=== PATIENT | female | born 1945 | race Caucasian/White ===

== ENCOUNTER 2021-01-21 17:49 | Emergency (ER) | payer MEDICARE ==
[~2021-01-21 17:49] MED LIST: Sodium Chloride 0.9% 100 ML BAG ONE
[2021-01-21] MEDS ORDERED: Ondansetron PF 4 MG/2 ML Vial ONE (18:37)
[2021-01-21] MEDS ORDERED: Sodium Chloride 0.9% 1,000 ML ONE (18:37)
[2021-01-21 18:49] LABS: #Basophils 0.1 thou/uL (0.0-0.2); #Eosinphils 0.1 thou/uL (0.0-0.7); #Monocytes 0.3 thou/uL (0.11-0.59); #Neutrophils 6.4 thou/uL (1.40-6.50); %Basophils 0.8 % (0.0-1.0); %Eosinophils 0.8 % (0.0-10.0); %Lymphocytes 12.2 % (21.0-51.0); %Monocytes 3.7 % (0.0-10.0); %Neutrophils 82.5 % (42.0-75.0); Hemoglobin 12.4 g/dL (12.0-16.0); MDiff Complete? YES; Macrocytosis SLIGHT = 6-15 cells (100X) (0-5/hpf); Mean Corpuscular HGB CONC 33.4 g/dL (32.0-36.0); Mean Corpuscular Hemoglobin 36.7 pg (27.0-31.0); Mean Platelet Volume 8.2 fL (7.4-10.4); Platelet Count 272 thou/uL (130-400); RBC Distribution Width 11.8 % (11.5-14.5); Red Blood Cell (RBC) Count 3.37 mill/uL (4.20-5.40); White Blood Cell (WBC) Count 7.8 thou/uL (4.8-10.8)
[2021-01-21 18:53] LABS: ALT (SGPT) 12 U/L (8-55); AST (SGOT) 21 U/L (5-34); Albumin 3.7 g/dL (3.4-4.8); Alkaline Phosphatase 88 U/L (40-110); Anion Gap 24 mmol/L (10-20); BUN (Urea Nitrogen) 106 mg/dL (9.8-20.1); Bilirubin, Total 0.4 mg/dL (0.2-1.2); CK (CPK) 203 U/L (29-168); Calc. Creatinine Clearance 0 mL/min (70-130); Calcium 7.6 mg/dL (7.8-10.44); Carbon Dioxide 13 mmol/L (23-31); Chloride 86 mmol/L (98-107); Globulin 2.6 g/dL (2.4-3.5); Glucose 104 mg/dL (83-110); Potassium 4.2 mmol/L (3.5-5.1); Protein, Total 6.3 g/dL (5.8-8.1)
[2021-01-21 19:04] LABS: Sodium 119 mmol/L (136-145)
[2021-01-21 19:44] LABS: Bilirubin Negative (Negative); Blood, Urine Negative (Negative); Clarity Slightly Cloudy (Clear); Glucose, Urine (Dipstick) Negative (Negative); Ketone, Urine Negative (Negative); Leukocyte Small (Negative); Nitrite Negative (Negative); Protein, Urine (Dipstick) Negative (Neg-Trace); Urobilinogen 0.2 mg/dL (Less than 2)
[2021-01-21 19:49] LABS: Bacteria/HPF 3+ HPF (None Seen); RBC/HPF 0-3 HPF (0-3); Squamous Epithelial 0-3 HPF (0-3)
[2021-01-21] MEDS ORDERED: cefTRIAXone\\ROCEPHIN 2 GM VIAL ONE (20:13)
== END 2021-01-21 20:25 | disposition short-term general hospital (02) ==
LOC: MADERS 17:49
DX: R41.82 Altered mental status, unspecified (principal); E87.1 Hypo-osmolality and hyponatremia; N17.9 Acute kidney failure, unspecified; E86.0 Dehydration; N39.0 Urinary tract infection, site not specified; E03.9 Hypothyroidism, unspecified; E78.5 Hyperlipidemia, unspecified; I10 Essential (primary) hypertension; I25.2 Old myocardial infarction; R60.0 Localized edema; R26.9 Unspecified abnormalities of gait and mobility; Z87.19 Personal history of other diseases of the digestive system
CPT/HCPCS: 36415; 70450; 71045; 80053; 81003; 81015; 82550; 84484; 85025; 86140; 87040; 87077; 87086; 87186; 96374; 96375; J0696; J2405; J3490; J7050

== ENCOUNTER 2021-02-02 16:15 | Inpatient (IN) | payer MEDICARE ==
[2021-02-02] MEDS ORDERED: Nystatin Powder 15 GM BOT TOP PRN (18:16)
[2021-02-02] MEDS ORDERED: Nitroglycerin 0.4 MG TAB (25 Tab Bottle) SL PRN (18:16)
[2021-02-02] MEDS: Atorvastatin Calcium 40 MG TAB PO SCH (21:16)
[2021-02-02] MEDS: Senokot S 8.6-50 MG TAB PO SCH (21:17)
[2021-02-02] MEDS: guaiFENesin ER 600 MG TAB PO SCH (21:17)
[2021-02-02] MEDS: Clopidogrel Bisulfate 75 MG TAB PO SCH (21:17)
[2021-02-02] MEDS: Loratadine 10 MG TAB PO SCH (21:17)
[2021-02-03] MEDS: Lorazepam 1 MG TAB PO PRN (01:06)
[2021-02-03] MEDS: Levothyroxine Sodium 25 MCG TAB PO SCH (05:37)
[2021-02-03 06:09] LABS: Band 2 % (5-11); Eosinophils 1 % (0-10); Giant Platelets SLIGHT; Hemoglobin 11.1 g/dL (12.0-16.0); Large Platelets SLIGHT; Lymphocytes 9 % (21-51); MDiff Complete? YES; Macrocytosis SLIGHT = 6-15 cells (100X) (0-5/hpf); Mean Corpuscular HGB CONC 31.6 g/dL (32.0-36.0); Mean Corpuscular Hemoglobin 36.8 pg (27.0-31.0); Mean Corpuscular Volume 116.3 fL (78.0-98.0); Mean Platelet Volume 8.5 fL (7.4-10.4); Monocytes 3 % (0-10); Neutrophil 85 % (42-75); Platelet Count 260 thou/uL (130-400); Platelet Morphology Comment Appears Adequate; RBC Distribution Width 13.4 % (11.5-14.5); Red Blood Cell (RBC) Count 3.03 mill/uL (4.20-5.40); White Blood Cell (WBC) Count 11.7 thou/uL (4.8-10.8)
[2021-02-03 07:33] LABS: ALT (SGPT) 20 U/L (8-55); AST (SGOT) 23 U/L (5-34); Albumin 3.2 g/dL (3.4-4.8); Alkaline Phosphatase 107 U/L (40-110); Anion Gap 17 mmol/L (10-20); BUN (Urea Nitrogen) 25 mg/dL (9.8-20.1); Bilirubin, Total 1.1 mg/dL (0.2-1.2); Calc. Creatinine Clearance 87 mL/min (70-130); Calcium 8.6 mg/dL (7.8-10.44); Carbon Dioxide 27 mmol/L (23-31); Chloride 101 mmol/L (98-107); Glucose 88 mg/dL (83-110); Potassium 3.6 mmol/L (3.5-5.1); Protein, Total 5.2 g/dL (5.8-8.1); Sodium 141 mmol/L (136-145)
[2021-02-03] MEDS ORDERED: Ondansetron ODT 4 MG TAB SL PRN (07:56)
[2021-02-03] MEDS: Carvedilol 3.125 MG TAB PO SCH ×2 (09:11→17:41)
[2021-02-03] MEDS: Aspirin Chewable 81 MG TAB PO SCH (09:11)
[2021-02-03] MEDS: Furosemide 40 MG TAB PO SCH (09:12)
[2021-02-03] MEDS: Cyanocobalamin (Vitamin B-12) 1,000 MCG TAB PO SCH (09:12)
[2021-02-03] MEDS: Stress 600 With Zinc 1 TAB PO SCH (09:23)
[2021-02-03] MEDS: Senokot S 8.6-50 MG TAB PO SCH ×3 (09:23→20:22)
[2021-02-03] MEDS: Multivitamin W/ Minerals 1 TAB PO SCH (09:29)
[2021-02-03] MEDS: guaiFENesin ER 600 MG TAB PO SCH ×2 (09:29→20:22)
[2021-02-03] MEDS: Potassium Bicarbonate/Cit Ac 20 MEQ TAB PO SCH ×3 (09:30→12:03)
[2021-02-03] MEDS: Atorvastatin Calcium 40 MG TAB PO SCH (20:22)
[2021-02-03] MEDS: Loratadine 10 MG TAB PO SCH (20:22)
[2021-02-03] MEDS: Clopidogrel Bisulfate 75 MG TAB PO SCH (20:22)
[2021-02-04] MEDS: Levothyroxine Sodium 25 MCG TAB PO SCH (05:01)
[2021-02-04] MEDS: Furosemide 40 MG TAB PO SCH (08:33)
[2021-02-04] MEDS: Senokot S 8.6-50 MG TAB PO SCH ×2 (08:33→20:59)
[2021-02-04] MEDS: Carvedilol 3.125 MG TAB PO SCH ×2 (08:33→17:23)
[2021-02-04] MEDS: Cyanocobalamin (Vitamin B-12) 1,000 MCG TAB PO SCH (08:33)
[2021-02-04] MEDS: Aspirin Chewable 81 MG TAB PO SCH (08:33)
[2021-02-04] MEDS: Stress 600 With Zinc 1 TAB PO SCH (08:46)
[2021-02-04] MEDS: Multivitamin W/ Minerals 1 TAB PO SCH (08:46)
[2021-02-04] MEDS: guaiFENesin ER 600 MG TAB PO SCH ×2 (08:46→20:58)
[2021-02-04] MEDS: Potassium Bicarbonate/Cit Ac 20 MEQ TAB PO SCH (11:50)
[2021-02-04] MEDS ORDERED: Bisacodyl 10 MG SUPP PR PRN (13:47)
[2021-02-04] MEDS: Atorvastatin Calcium 40 MG TAB PO SCH (20:58)
[2021-02-04] MEDS: Loratadine 10 MG TAB PO SCH (20:58)
[2021-02-04] MEDS: Clopidogrel Bisulfate 75 MG TAB PO SCH (20:58)
[2021-02-04] MEDS ORDERED: Polyethylene Glycol 3350 17 GM Packet PO SCH (21:00)
[2021-02-05] MEDS: Levothyroxine Sodium 25 MCG TAB PO SCH (05:22)
[2021-02-05] MEDS: Polyethylene Glycol 3350 17 GM Packet PO SCH (08:03)
[2021-02-05] MEDS: Multivitamin W/ Minerals 1 TAB PO SCH (09:12)
[2021-02-05] MEDS: Carvedilol 3.125 MG TAB PO SCH ×2 (09:12→17:42)
[2021-02-05] MEDS: Furosemide 40 MG TAB PO SCH (09:12)
[2021-02-05] MEDS: Senokot S 8.6-50 MG TAB PO SCH ×2 (09:12→21:33)
[2021-02-05] MEDS: guaiFENesin ER 600 MG TAB PO SCH ×2 (09:12→21:32)
[2021-02-05] MEDS: Aspirin Chewable 81 MG TAB PO SCH (09:12)
[2021-02-05] MEDS: Cyanocobalamin (Vitamin B-12) 1,000 MCG TAB PO SCH (09:12)
[2021-02-05] MEDS: Stress 600 With Zinc 1 TAB PO SCH (09:13)
[2021-02-05] MEDS: Potassium Bicarbonate/Cit Ac 20 MEQ TAB PO SCH (11:25)
[2021-02-05] MEDS: Atorvastatin Calcium 40 MG TAB PO SCH (21:31)
[2021-02-05] MEDS: Clopidogrel Bisulfate 75 MG TAB PO SCH (21:32)
[2021-02-05] MEDS: Loratadine 10 MG TAB PO SCH (21:33)
[2021-02-06] MEDS: Levothyroxine Sodium 25 MCG TAB PO SCH (05:54)
[2021-02-06] MEDS: Aspirin Chewable 81 MG TAB PO SCH (08:02)
[2021-02-06] MEDS: guaiFENesin ER 600 MG TAB PO SCH ×2 (08:02→21:30)
[2021-02-06] MEDS: Stress 600 With Zinc 1 TAB PO SCH (08:02)
[2021-02-06] MEDS: Carvedilol 3.125 MG TAB PO SCH ×2 (08:03→17:11)
[2021-02-06] MEDS: Furosemide 40 MG TAB PO SCH (08:03)
[2021-02-06] MEDS: Multivitamin W/ Minerals 1 TAB PO SCH (08:03)
[2021-02-06] MEDS: Cyanocobalamin (Vitamin B-12) 1,000 MCG TAB PO SCH (08:03)
[2021-02-06] MEDS: Polyethylene Glycol 3350 17 GM Packet PO SCH (08:53)
[2021-02-06] MEDS: Senokot S 8.6-50 MG TAB PO SCH ×2 (08:53→21:30)
[2021-02-06] MEDS: Potassium Bicarbonate/Cit Ac 20 MEQ TAB PO SCH (11:43)
[2021-02-06] MEDS: Lorazepam 1 MG TAB PO PRN (21:30)
[2021-02-06] MEDS: Loratadine 10 MG TAB PO SCH (21:30)
[2021-02-06] MEDS: Atorvastatin Calcium 40 MG TAB PO SCH (21:30)
[2021-02-06] MEDS: Clopidogrel Bisulfate 75 MG TAB PO SCH (21:30)
[2021-02-07] MEDS: Levothyroxine Sodium 25 MCG TAB PO SCH (05:09)
[2021-02-07] MEDS: Aspirin Chewable 81 MG TAB PO SCH (08:09)
[2021-02-07] MEDS: guaiFENesin ER 600 MG TAB PO SCH ×2 (08:09→20:45)
[2021-02-07] MEDS: Furosemide 40 MG TAB PO SCH (08:09)
[2021-02-07] MEDS: Multivitamin W/ Minerals 1 TAB PO SCH (08:09)
[2021-02-07] MEDS: Stress 600 With Zinc 1 TAB PO SCH (08:09)
[2021-02-07] MEDS: Cyanocobalamin (Vitamin B-12) 1,000 MCG TAB PO SCH (08:09)
[2021-02-07] MEDS: Carvedilol 3.125 MG TAB PO SCH ×2 (08:33→15:45)
[2021-02-07] MEDS: Senokot S 8.6-50 MG TAB PO SCH ×2 (08:34→20:46)
[2021-02-07] MEDS: Polyethylene Glycol 3350 17 GM Packet PO SCH (08:34)
[2021-02-07] MEDS: Potassium Bicarbonate/Cit Ac 20 MEQ TAB PO SCH (11:58)
[2021-02-07] MEDS: Clopidogrel Bisulfate 75 MG TAB PO SCH (20:44)
[2021-02-07] MEDS: Atorvastatin Calcium 40 MG TAB PO SCH (20:44)
[2021-02-07] MEDS: Lorazepam 1 MG TAB PO PRN (20:46)
[2021-02-07] MEDS: Loratadine 10 MG TAB PO SCH (20:46)
[2021-02-08] MEDS: Levothyroxine Sodium 25 MCG TAB PO SCH (05:29)
[2021-02-08] MEDS: Aspirin Chewable 81 MG TAB PO SCH (09:12)
[2021-02-08] MEDS: Furosemide 40 MG TAB PO SCH (09:12)
[2021-02-08] MEDS: Carvedilol 3.125 MG TAB PO SCH ×2 (09:12→17:44)
[2021-02-08] MEDS: Cyanocobalamin (Vitamin B-12) 1,000 MCG TAB PO SCH (09:13)
[2021-02-08] MEDS: Senokot S 8.6-50 MG TAB PO SCH ×2 (09:13→20:57)
[2021-02-08] MEDS: Polyethylene Glycol 3350 17 GM Packet PO SCH (09:13)
[2021-02-08] MEDS: guaiFENesin ER 600 MG TAB PO SCH ×2 (09:13→20:57)
[2021-02-08] MEDS: Multivitamin W/ Minerals 1 TAB PO SCH (09:13)
[2021-02-08] MEDS: Stress 600 With Zinc 1 TAB PO SCH (09:13)
[2021-02-08] MEDS: Potassium Bicarbonate/Cit Ac 20 MEQ TAB PO SCH (11:54)
[2021-02-08] MEDS: Clopidogrel Bisulfate 75 MG TAB PO SCH (20:56)
[2021-02-08] MEDS: Atorvastatin Calcium 40 MG TAB PO SCH (20:56)
[2021-02-08] MEDS: Loratadine 10 MG TAB PO SCH (20:57)
[2021-02-08] MEDS: Lorazepam 1 MG TAB PO PRN (20:58)
[2021-02-09] MEDS: Levothyroxine Sodium 25 MCG TAB PO SCH (05:34)
[2021-02-09] MEDS: Furosemide 40 MG TAB PO SCH (08:15)
[2021-02-09] MEDS: Carvedilol 3.125 MG TAB PO SCH ×2 (08:15→16:37)
[2021-02-09] MEDS: Aspirin Chewable 81 MG TAB PO SCH (08:17)
[2021-02-09] MEDS: Multivitamin W/ Minerals 1 TAB PO SCH (08:17)
[2021-02-09] MEDS: guaiFENesin ER 600 MG TAB PO SCH ×2 (08:18→21:06)
[2021-02-09] MEDS: Cyanocobalamin (Vitamin B-12) 1,000 MCG TAB PO SCH (08:18)
[2021-02-09] MEDS: Senokot S 8.6-50 MG TAB PO SCH ×2 (08:18→21:06)
[2021-02-09] MEDS: Stress 600 With Zinc 1 TAB PO SCH (08:18)
[2021-02-09] MEDS: Polyethylene Glycol 3350 17 GM Packet PO SCH (08:18)
[2021-02-09] MEDS: Potassium Bicarbonate/Cit Ac 20 MEQ TAB PO SCH (12:04)
[2021-02-09] MEDS: Atorvastatin Calcium 40 MG TAB PO SCH (21:05)
[2021-02-09] MEDS: Clopidogrel Bisulfate 75 MG TAB PO SCH (21:06)
[2021-02-09] MEDS: Loratadine 10 MG TAB PO SCH (21:06)
[2021-02-09] MEDS: Lorazepam 1 MG TAB PO PRN (21:07)
[2021-02-10] MEDS: Levothyroxine Sodium 25 MCG TAB PO SCH (05:39)
[2021-02-10] MEDS: Cyanocobalamin (Vitamin B-12) 1,000 MCG TAB PO SCH (08:29)
[2021-02-10] MEDS: Carvedilol 3.125 MG TAB PO SCH ×2 (08:29→17:04)
[2021-02-10] MEDS: Senokot S 8.6-50 MG TAB PO SCH ×2 (08:29→20:20)
[2021-02-10] MEDS: Multivitamin W/ Minerals 1 TAB PO SCH (08:30)
[2021-02-10] MEDS: Stress 600 With Zinc 1 TAB PO SCH (08:30)
[2021-02-10] MEDS: Furosemide 40 MG TAB PO SCH (08:30)
[2021-02-10] MEDS: Aspirin Chewable 81 MG TAB PO SCH (08:30)
[2021-02-10] MEDS: Polyethylene Glycol 3350 17 GM Packet PO SCH (08:30)
[2021-02-10] MEDS: guaiFENesin ER 600 MG TAB PO SCH ×3 (08:30→20:20)
[2021-02-10 09:29] VITALS: BMI 38.5
[2021-02-10] MEDS: Potassium Bicarbonate/Cit Ac 20 MEQ TAB PO SCH (11:53)
[2021-02-10] MEDS: Clopidogrel Bisulfate 75 MG TAB PO SCH (20:20)
[2021-02-10] MEDS: Atorvastatin Calcium 40 MG TAB PO SCH (20:20)
[2021-02-10] MEDS: Loratadine 10 MG TAB PO SCH (20:21)
[2021-02-11] MEDS: Lorazepam 1 MG TAB PO PRN ×2 (00:36→19:58)
[2021-02-11] MEDS: Levothyroxine Sodium 25 MCG TAB PO SCH (05:18)
[2021-02-11 05:45] LABS: ALT (SGPT) 25 U/L (8-55); AST (SGOT) 24 U/L (5-34); Albumin 2.8 g/dL (3.4-4.8); Alkaline Phosphatase 79 U/L (40-110); Anion Gap 13 mmol/L (10-20); BUN (Urea Nitrogen) 14 mg/dL (9.8-20.1); Bilirubin, Total 0.6 mg/dL (0.2-1.2); Calc. Creatinine Clearance 101 mL/min (70-130); Calcium 8.4 mg/dL (7.8-10.44); Carbon Dioxide 28 mmol/L (23-31); Chloride 102 mmol/L (98-107); Globulin 2.2 g/dL (2.4-3.5); Glucose 96 mg/dL (83-110); Potassium 3.1 mmol/L (3.5-5.1); Sodium 140 mmol/L (136-145)
[2021-02-11 05:46] LABS: #Basophils 0.2 thou/uL (0.0-0.2); #Eosinphils 0.8 thou/uL (0.0-0.7); #Lymphocytes 2.6 thou/uL (1.20-3.40); #Monocytes 0.5 thou/uL (0.11-0.59); #Neutrophils 3.8 thou/uL (1.40-6.50); %Basophils 2.1 % (0.0-1.0); %Eosinophils 10.4 % (0.0-10.0); %Lymphocytes 33.4 % (21.0-51.0); %Monocytes 5.8 % (0.0-10.0); %Neutrophils 48.4 % (42.0-75.0); Anisocytosis SLIGHT = 6-15 cells (100X) (0-5/hpf); Hemoglobin 10.3 g/dL (12.0-16.0); Hypochromia SLIGHT = 6-15 cells (100X) (0-5/hpf); MDiff Complete? YES; Macrocytosis SLIGHT = 6-15 cells (100X) (0-5/hpf); Mean Corpuscular HGB CONC 31.8 g/dL (32.0-36.0); Mean Corpuscular Volume 113.2 fL (78.0-98.0); Mean Platelet Volume 7.5 fL (7.4-10.4); Platelet Count 355 thou/uL (130-400); Platelet Morphology Comment Appears Adequate; RBC Distribution Width 13.4 % (11.5-14.5); Red Blood Cell (RBC) Count 2.87 mill/uL (4.20-5.40); White Blood Cell (WBC) Count 7.9 thou/uL (4.8-10.8)
[2021-02-11] MEDS: Senokot S 8.6-50 MG TAB PO SCH ×2 (08:24→19:59)
[2021-02-11] MEDS: Multivitamin W/ Minerals 1 TAB PO SCH (08:24)
[2021-02-11] MEDS: Furosemide 40 MG TAB PO SCH (08:24)
[2021-02-11] MEDS: Cyanocobalamin (Vitamin B-12) 1,000 MCG TAB PO SCH (08:24)
[2021-02-11] MEDS: Carvedilol 3.125 MG TAB PO SCH ×2 (08:24→17:09)
[2021-02-11] MEDS: guaiFENesin ER 600 MG TAB PO SCH ×2 (08:24→19:59)
[2021-02-11] MEDS: Polyethylene Glycol 3350 17 GM Packet PO SCH ×2 (08:24→08:30)
[2021-02-11] MEDS: Stress 600 With Zinc 1 TAB PO SCH (08:24)
[2021-02-11] MEDS: Aspirin Chewable 81 MG TAB PO SCH (08:24)
[2021-02-11] MEDS ORDERED: Potassium Bicarbonate/Cit Ac 20 MEQ TAB PO SCH ×2 (09:15→17:00)
[2021-02-11 19:04] VITALS: BP 101/57; TEMP 97.4
[2021-02-11] MEDS: Clopidogrel Bisulfate 75 MG TAB PO SCH (19:59)
[2021-02-11] MEDS: Loratadine 10 MG TAB PO SCH (19:59)
[2021-02-11] MEDS: Atorvastatin Calcium 40 MG TAB PO SCH (19:59)
[2021-02-11] MEDS ORDERED: Acetaminophen 325 MG TAB PO PRN (20:55)
== END 2021-02-11 22:53 | disposition short-term general hospital (02) | DRG 947 ==
LOC: MADMS 16:15
PROVIDERS: ADMIT Family Medicine; ATTEND Family Medicine
DX: R53.81 Other malaise (principal); G93.41 Metabolic encephalopathy; I51.81 Takotsubo syndrome; I25.10 Atherosclerotic heart disease of native coronary artery without angina pectoris; E03.9 Hypothyroidism, unspecified; E66.9 Obesity, unspecified; F41.9 Anxiety disorder, unspecified; R53.1 Weakness; I12.9 Hypertensive chronic kidney disease with stage 1 through stage 4 chronic kidney disease, or unspecified chronic kidney disease; N18.9 Chronic kidney disease, unspecified; H91.90 Unspecified hearing loss, unspecified ear; E78.5 Hyperlipidemia, unspecified; Z79.82 Long term (current) use of aspirin; Z90.49 Acquired absence of other specified parts of digestive tract; Z98.890 Other specified postprocedural states; Z79.02 Long term (current) use of antithrombotics/antiplatelets; Z88.8 Allergy status to other drugs, medicaments and biological substances; Z95.5 Presence of coronary angioplasty implant and graft; Z68.38 Body mass index [BMI] 38.0-38.9, adult
CPT/HCPCS: 36415; 80053; 85025; Q0162

== ENCOUNTER 2021-02-11 21:07 | Emergency (ER) | payer MEDICARE ==
[2021-02-11 22:29] LABS: Hemoglobin 11.7 g/dL (12.0-16.0); Mean Corpuscular HGB CONC 30.7 g/dL (32.0-36.0); Mean Corpuscular Hemoglobin 35.4 pg (27.0-31.0); Mean Corpuscular Volume 115.3 fL (78.0-98.0); Mean Platelet Volume 7.6 fL (7.4-10.4); Platelet Count 412 thou/uL (130-400); RBC Distribution Width 13.1 % (11.5-14.5); Red Blood Cell (RBC) Count 3.31 mill/uL (4.20-5.40); White Blood Cell (WBC) Count 9.2 thou/uL (4.8-10.8)
[2021-02-11 22:47] LABS: ALT (SGPT) 32 U/L (8-55); AST (SGOT) 31 U/L (5-34); Albumin 3.3 g/dL (3.4-4.8); Alkaline Phosphatase 98 U/L (40-110); Anion Gap 16 mmol/L (10-20); BUN (Urea Nitrogen) 15 mg/dL (9.8-20.1); Bilirubin, Total 0.7 mg/dL (0.2-1.2); CK (CPK) 22 U/L (29-168); Calc. Creatinine Clearance 0 mL/min (70-130); Calcium 8.9 mg/dL (7.8-10.44); Carbon Dioxide 28 mmol/L (23-31); Chloride 99 mmol/L (98-107); Globulin 2.8 g/dL (2.4-3.5); Glucose 96 mg/dL (83-110); Lipase 64 U/L (8-78); Potassium 3.4 mmol/L (3.5-5.1); Protein, Total 6.1 g/dL (5.8-8.1); Sodium 140 mmol/L (136-145)
[2021-02-11 22:48] LABS: #Basophils 0.2 thou/uL (0.0-0.2); #Eosinphils 0.7 thou/uL (0.0-0.7); #Lymphocytes 2.4 thou/uL (1.20-3.40); #Monocytes 0.6 thou/uL (0.11-0.59); #Neutrophils 5.4 thou/uL (1.40-6.50); %Basophils 1.7 % (0.0-1.0); %Eosinophils 7.7 % (0.0-10.0); %Lymphocytes 26.1 % (21.0-51.0); %Monocytes 6.1 % (0.0-10.0); %Neutrophils 58.4 % (42.0-75.0); MDiff Complete? YES; Macrocytosis SLIGHT = 6-15 cells (100X) (0-5/hpf); Platelet Morphology Comment Appears Adequate; Polychromasia SLIGHT = 2-3 cells (100X) (0-2/hpf)
[2021-02-11 22:49] LABS: CKMB 0.3 ng/mL (0-6.6)
[2021-02-11] MEDS ORDERED: Lidocaine Viscous Sol 2% 15 ml UD Cup ONE (23:00)
[2021-02-11] MEDS ORDERED: Mag-Al Plus 1200 MG/1200 MG/120 MG/30 ML UDCUP ONE (23:00)
== END 2021-02-12 02:00 | disposition short-term general hospital (02) ==
LOC: MADERS 21:07
DX: I13.0 Hypertensive heart and chronic kidney disease with heart failure and stage 1 through stage 4 chronic kidney disease, or unspecified chronic kidney disease (principal); I50.9 Heart failure, unspecified; N18.9 Chronic kidney disease, unspecified; E03.9 Hypothyroidism, unspecified; I25.2 Old myocardial infarction; E78.5 Hyperlipidemia, unspecified; E66.9 Obesity, unspecified; E87.1 Hypo-osmolality and hyponatremia; I25.110 Atherosclerotic heart disease of native coronary artery with unstable angina pectoris; Z79.899 Other long term (current) drug therapy; Z79.82 Long term (current) use of aspirin; Z87.19 Personal history of other diseases of the digestive system
CPT/HCPCS: 71045; 82150; 82550; 82553; 83690; 84484; 93005; 94760

== ENCOUNTER 2021-02-17 18:34 | Inpatient (IN) | payer MEDICARE ==
[2021-02-17] MEDS ORDERED: Loratadine 10 MG TAB PO PRN (19:46)
[2021-02-17] MEDS ORDERED: guaiFENesin ER 600 MG TAB PO PRN (19:49)
[2021-02-17] MEDS ORDERED: Nystatin Powder 15 GM BOT TOP PRN (19:53)
[2021-02-17] MEDS ORDERED: Nitroglycerin 0.4 MG TAB (25 Tab Bottle) SL PRN (19:53)
[2021-02-17] MEDS: ALPRAZolam 0.25 MG TAB PO PRN (21:00)
[2021-02-17] MEDS: Senokot S 8.6-50 MG TAB PO SCH (21:00)
[2021-02-17] MEDS: Apixaban 5 MG TAB PO SCH (21:00)
[2021-02-18] MEDS: traMADol HCl 50 MG TAB PO PRN (05:28)
[2021-02-18] MEDS: Levothyroxine Sodium 25 MCG TAB PO SCH (05:29)
[2021-02-18] MEDS: Transdermal Patch Removal TOP SCH (05:32)
[2021-02-18 05:44] LABS: #Basophils 0.2 thou/uL (0.0-0.2); #Eosinphils 0.9 thou/uL (0.0-0.7); #Lymphocytes 2.7 thou/uL (1.20-3.40); #Monocytes 0.5 thou/uL (0.11-0.59); #Neutrophils 4.5 thou/uL (1.40-6.50); %Eosinophils 10.2 % (0.0-10.0); %Lymphocytes 30.6 % (21.0-51.0); %Monocytes 5.9 % (0.0-10.0); %Neutrophils 51.3 % (42.0-75.0); Hemoglobin 11.8 g/dL (12.0-16.0); MDiff Complete? YES; Macrocytosis SLIGHT = 6-15 cells (100X) (0-5/hpf); Mean Corpuscular HGB CONC 31.9 g/dL (32.0-36.0); Mean Corpuscular Hemoglobin 35.9 pg (27.0-31.0); Mean Corpuscular Volume 112.7 fL (78.0-98.0); Mean Platelet Volume 7.9 fL (7.4-10.4); Platelet Count 291 thou/uL (130-400); Platelet Morphology Comment Appears Adequate; RBC Distribution Width 13.7 % (11.5-14.5); Red Blood Cell (RBC) Count 3.29 mill/uL (4.20-5.40); White Blood Cell (WBC) Count 8.7 thou/uL (4.8-10.8)
[2021-02-18 05:50] LABS: ALT (SGPT) 31 U/L (8-55); AST (SGOT) 49 U/L (5-34); Albumin 2.9 g/dL (3.4-4.8); Alkaline Phosphatase 99 U/L (40-110); Anion Gap 16 mmol/L (10-20); BUN (Urea Nitrogen) 12 mg/dL (9.8-20.1); Bilirubin, Total 0.9 mg/dL (0.2-1.2); Calc. Creatinine Clearance 96 mL/min (70-130); Calcium 8.5 mg/dL (7.8-10.44); Carbon Dioxide 22 mmol/L (23-31); Chloride 105 mmol/L (98-107); Globulin 3.3 g/dL (2.4-3.5); Glucose 89 mg/dL (83-110); Potassium 4.2 mmol/L (3.5-5.1); Protein, Total 6.2 g/dL (5.8-8.1); Sodium 139 mmol/L (136-145)
[2021-02-18] MEDS: Senokot S 8.6-50 MG TAB PO SCH ×2 (08:28→21:02)
[2021-02-18] MEDS: Clopidogrel Bisulfate 75 MG TAB PO SCH (08:29)
[2021-02-18] MEDS: Cyanocobalamin (Vitamin B-12) 1,000 MCG TAB PO SCH (08:29)
[2021-02-18] MEDS: Allopurinol 100 MG TAB PO SCH (08:29)
[2021-02-18] MEDS: Multivitamin W/ Minerals 1 TAB PO SCH (08:29)
[2021-02-18] MEDS: Lisinopril 5 MG TAB PO SCH (08:30)
[2021-02-18] MEDS: Potassium Bicarbonate/Cit Ac 20 MEQ TAB PO SCH (08:30)
[2021-02-18] MEDS: Atorvastatin Calcium 40 MG TAB PO SCH (08:30)
[2021-02-18] MEDS: Furosemide 40 MG TAB PO SCH (08:30)
[2021-02-18] MEDS: Carvedilol 3.125 MG TAB PO SCH ×2 (08:31→17:19)
[2021-02-18] MEDS: Apixaban 5 MG TAB PO SCH ×2 (08:32→21:01)
[2021-02-18] MEDS: Stress 600 With Zinc 1 TAB PO SCH (08:32)
[2021-02-18] MEDS: Lidocaine 5% Patch TD SCH (17:12)
[2021-02-18] MEDS: ALPRAZolam 0.25 MG TAB PO PRN (21:45)
[2021-02-19] MEDS: Levothyroxine Sodium 25 MCG TAB PO SCH (05:22)
[2021-02-19] MEDS: Transdermal Patch Removal TOP SCH (05:22)
[2021-02-19] MEDS: Apixaban 5 MG TAB PO SCH ×2 (09:32→20:22)
[2021-02-19] MEDS: Senokot S 8.6-50 MG TAB PO SCH ×2 (09:32→20:23)
[2021-02-19] MEDS: Furosemide 40 MG TAB PO SCH (09:33)
[2021-02-19] MEDS: Carvedilol 3.125 MG TAB PO SCH ×2 (09:33→17:16)
[2021-02-19] MEDS: Atorvastatin Calcium 40 MG TAB PO SCH (09:33)
[2021-02-19] MEDS: Allopurinol 100 MG TAB PO SCH (09:33)
[2021-02-19] MEDS: Clopidogrel Bisulfate 75 MG TAB PO SCH (09:33)
[2021-02-19] MEDS: Stress 600 With Zinc 1 TAB PO SCH (09:33)
[2021-02-19] MEDS: Cyanocobalamin (Vitamin B-12) 1,000 MCG TAB PO SCH (09:33)
[2021-02-19] MEDS: Potassium Bicarbonate/Cit Ac 20 MEQ TAB PO SCH (09:33)
[2021-02-19] MEDS: Multivitamin W/ Minerals 1 TAB PO SCH (09:33)
[2021-02-19] MEDS: Lisinopril 5 MG TAB PO SCH (09:34)
[2021-02-19] MEDS: Lidocaine 5% Patch TD SCH (17:17)
[2021-02-19] MEDS: ALPRAZolam 0.25 MG TAB PO PRN (21:40)
[2021-02-19] MEDS: traMADol HCl 50 MG TAB PO PRN (23:02)
[2021-02-20] MEDS: Levothyroxine Sodium 25 MCG TAB PO SCH (05:27)
[2021-02-20] MEDS: Transdermal Patch Removal TOP SCH (05:29)
[2021-02-20] MEDS: Stress 600 With Zinc 1 TAB PO SCH (08:23)
[2021-02-20] MEDS: Senokot S 8.6-50 MG TAB PO SCH ×2 (08:25→21:33)
[2021-02-20] MEDS: Lisinopril 5 MG TAB PO SCH (08:26)
[2021-02-20] MEDS: Atorvastatin Calcium 40 MG TAB PO SCH (08:26)
[2021-02-20] MEDS: Cyanocobalamin (Vitamin B-12) 1,000 MCG TAB PO SCH (08:26)
[2021-02-20] MEDS: Potassium Bicarbonate/Cit Ac 20 MEQ TAB PO SCH (08:26)
[2021-02-20] MEDS: Apixaban 5 MG TAB PO SCH ×2 (08:26→21:32)
[2021-02-20] MEDS: Multivitamin W/ Minerals 1 TAB PO SCH (08:26)
[2021-02-20] MEDS: Furosemide 40 MG TAB PO SCH (08:26)
[2021-02-20] MEDS: Carvedilol 3.125 MG TAB PO SCH ×2 (08:27→17:58)
[2021-02-20] MEDS: Allopurinol 100 MG TAB PO SCH (08:27)
[2021-02-20] MEDS: Clopidogrel Bisulfate 75 MG TAB PO SCH (08:27)
[2021-02-20] MEDS: traMADol HCl 50 MG TAB PO PRN (10:52)
[2021-02-20] MEDS: Lidocaine 5% Patch TD SCH (17:58)
[2021-02-20] MEDS: ALPRAZolam 0.25 MG TAB PO PRN (21:32)
[2021-02-21] MEDS: Levothyroxine Sodium 25 MCG TAB PO SCH (05:50)
[2021-02-21] MEDS: Transdermal Patch Removal TOP SCH (05:53)
[2021-02-21] MEDS: Potassium Bicarbonate/Cit Ac 20 MEQ TAB PO SCH (08:30)
[2021-02-21] MEDS: Senokot S 8.6-50 MG TAB PO SCH ×2 (08:31→20:50)
[2021-02-21] MEDS: Stress 600 With Zinc 1 TAB PO SCH (08:31)
[2021-02-21] MEDS: Multivitamin W/ Minerals 1 TAB PO SCH (08:32)
[2021-02-21] MEDS: Clopidogrel Bisulfate 75 MG TAB PO SCH (08:32)
[2021-02-21] MEDS: Atorvastatin Calcium 40 MG TAB PO SCH (08:32)
[2021-02-21] MEDS: Furosemide 40 MG TAB PO SCH (08:32)
[2021-02-21] MEDS: Carvedilol 3.125 MG TAB PO SCH ×2 (08:32→17:22)
[2021-02-21] MEDS: Lisinopril 5 MG TAB PO SCH ×2 (08:32→08:49)
[2021-02-21] MEDS: Cyanocobalamin (Vitamin B-12) 1,000 MCG TAB PO SCH (08:32)
[2021-02-21] MEDS: Allopurinol 100 MG TAB PO SCH (08:32)
[2021-02-21] MEDS: Apixaban 5 MG TAB PO SCH ×2 (08:32→20:49)
[2021-02-21] MEDS: Lidocaine 5% Patch TD SCH (17:21)
[2021-02-22] MEDS: traMADol HCl 50 MG TAB PO PRN (00:55)
[2021-02-22] MEDS: ALPRAZolam 0.25 MG TAB PO PRN ×2 (00:55→22:32)
[2021-02-22] MEDS: Levothyroxine Sodium 25 MCG TAB PO SCH (05:25)
[2021-02-22] MEDS: Transdermal Patch Removal TOP SCH (05:31)
[2021-02-22] MEDS: Clopidogrel Bisulfate 75 MG TAB PO SCH (08:23)
[2021-02-22] MEDS: Stress 600 With Zinc 1 TAB PO SCH (08:24)
[2021-02-22] MEDS: Senokot S 8.6-50 MG TAB PO SCH ×2 (08:24→21:40)
[2021-02-22] MEDS: Multivitamin W/ Minerals 1 TAB PO SCH (08:24)
[2021-02-22] MEDS: Allopurinol 100 MG TAB PO SCH (08:24)
[2021-02-22] MEDS: Atorvastatin Calcium 40 MG TAB PO SCH (08:24)
[2021-02-22] MEDS: Potassium Bicarbonate/Cit Ac 20 MEQ TAB PO SCH (08:24)
[2021-02-22] MEDS: Lisinopril 5 MG TAB PO SCH (08:24)
[2021-02-22] MEDS: Carvedilol 3.125 MG TAB PO SCH ×2 (08:25→16:53)
[2021-02-22] MEDS: Apixaban 5 MG TAB PO SCH ×2 (08:25→21:40)
[2021-02-22] MEDS: Furosemide 40 MG TAB PO SCH (08:25)
[2021-02-22] MEDS: Cyanocobalamin (Vitamin B-12) 1,000 MCG TAB PO SCH (08:25)
[2021-02-22 13:21] VITALS: BMI 39.0
[2021-02-22] MEDS: Lidocaine 5% Patch TD SCH (17:00)
[2021-02-23] MEDS: Levothyroxine Sodium 25 MCG TAB PO SCH (05:45)
[2021-02-23] MEDS: Transdermal Patch Removal TOP SCH (05:45)
[2021-02-23] MEDS: Potassium Bicarbonate/Cit Ac 20 MEQ TAB PO SCH (08:11)
[2021-02-23] MEDS: Apixaban 5 MG TAB PO SCH ×2 (08:12→20:48)
[2021-02-23] MEDS: Stress 600 With Zinc 1 TAB PO SCH (08:12)
[2021-02-23] MEDS: Senokot S 8.6-50 MG TAB PO SCH ×2 (08:12→20:49)
[2021-02-23] MEDS: Cyanocobalamin (Vitamin B-12) 1,000 MCG TAB PO SCH (08:12)
[2021-02-23] MEDS: Multivitamin W/ Minerals 1 TAB PO SCH (08:12)
[2021-02-23] MEDS: Atorvastatin Calcium 40 MG TAB PO SCH (08:12)
[2021-02-23] MEDS: Clopidogrel Bisulfate 75 MG TAB PO SCH (08:12)
[2021-02-23] MEDS: Allopurinol 100 MG TAB PO SCH (08:12)
[2021-02-23] MEDS: Lisinopril 5 MG TAB PO SCH (08:31)
[2021-02-23] MEDS: Furosemide 40 MG TAB PO SCH (09:16)
[2021-02-23] MEDS: Carvedilol 3.125 MG TAB PO SCH ×2 (09:16→18:00)
[2021-02-23] MEDS: Lidocaine 5% Patch TD SCH (18:01)
[2021-02-23] MEDS: ALPRAZolam 0.25 MG TAB PO PRN (22:50)
[2021-02-24] MEDS: Levothyroxine Sodium 25 MCG TAB PO SCH (05:13)
[2021-02-24 05:50] LABS: Anion Gap 13 mmol/L (10-20); BUN (Urea Nitrogen) 19 mg/dL (9.8-20.1); Calc. Creatinine Clearance 104 mL/min (70-130); Calcium 8.2 mg/dL (7.8-10.44); Carbon Dioxide 25 mmol/L (23-31); Chloride 102 mmol/L (98-107); Glucose 89 mg/dL (83-110); Potassium 3.4 mmol/L (3.5-5.1); Sodium 137 mmol/L (136-145)
[2021-02-24 06:01] LABS: #Basophils 0.1 thou/uL (0.0-0.2); #Eosinphils 0.5 thou/uL (0.0-0.7); #Lymphocytes 2.4 thou/uL (1.20-3.40); #Monocytes 0.6 thou/uL (0.11-0.59); #Neutrophils 3.4 thou/uL (1.40-6.50); %Basophils 1.9 % (0.0-1.0); %Eosinophils 7.1 % (0.0-10.0); %Lymphocytes 34.7 % (21.0-51.0); %Monocytes 8.4 % (0.0-10.0); Hemoglobin 10.7 g/dL (12.0-16.0); MDiff Complete? YES; Macrocytosis MODERATE=16-30 cells (100X) (0-5/hpf); Mean Corpuscular Hemoglobin 35.7 pg (27.0-31.0); Mean Corpuscular Volume 115.1 fL (78.0-98.0); Mean Platelet Volume 9.2 fL (7.4-10.4); Platelet Count 263 thou/uL (130-400); Platelet Morphology Comment Appears Adequate; RBC Distribution Width 13.1 % (11.5-14.5)
[2021-02-24] MEDS: Senokot S 8.6-50 MG TAB PO SCH ×2 (08:29→20:06)
[2021-02-24] MEDS: Cyanocobalamin (Vitamin B-12) 1,000 MCG TAB PO SCH (08:30)
[2021-02-24] MEDS: Furosemide 40 MG TAB PO SCH (08:30)
[2021-02-24] MEDS: Stress 600 With Zinc 1 TAB PO SCH (08:30)
[2021-02-24] MEDS: Allopurinol 100 MG TAB PO SCH (08:30)
[2021-02-24] MEDS: Atorvastatin Calcium 40 MG TAB PO SCH (08:30)
[2021-02-24] MEDS: Multivitamin W/ Minerals 1 TAB PO SCH (08:30)
[2021-02-24] MEDS: Apixaban 5 MG TAB PO SCH ×2 (08:31→20:05)
[2021-02-24] MEDS: Clopidogrel Bisulfate 75 MG TAB PO SCH (08:31)
[2021-02-24] MEDS: Carvedilol 3.125 MG TAB PO SCH ×2 (08:37→17:03)
[2021-02-24] MEDS: Transdermal Patch Removal TOP SCH (08:38)
[2021-02-24] MEDS: Lisinopril 5 MG TAB PO SCH (08:38)
[2021-02-24] MEDS: Potassium Bicarbonate/Cit Ac 20 MEQ TAB PO SCH ×3 (08:38→20:06)
[2021-02-24] MEDS: Lidocaine 5% Patch TD SCH (17:02)
[2021-02-24] MEDS: ALPRAZolam 0.25 MG TAB PO PRN (20:08)
[2021-02-25] MEDS: Levothyroxine Sodium 25 MCG TAB PO SCH (05:27)
[2021-02-25] MEDS: Transdermal Patch Removal TOP SCH (05:28)
[2021-02-25] MEDS: Lisinopril 5 MG TAB PO SCH (08:33)
[2021-02-25] MEDS: Stress 600 With Zinc 1 TAB PO SCH (08:34)
[2021-02-25] MEDS: Potassium Bicarbonate/Cit Ac 20 MEQ TAB PO SCH ×2 (08:34→21:20)
[2021-02-25] MEDS: Multivitamin W/ Minerals 1 TAB PO SCH (08:34)
[2021-02-25] MEDS: Cyanocobalamin (Vitamin B-12) 1,000 MCG TAB PO SCH (08:34)
[2021-02-25] MEDS: Atorvastatin Calcium 40 MG TAB PO SCH (08:34)
[2021-02-25] MEDS: Carvedilol 3.125 MG TAB PO SCH ×2 (08:35→17:49)
[2021-02-25] MEDS: Clopidogrel Bisulfate 75 MG TAB PO SCH (08:35)
[2021-02-25] MEDS: Senokot S 8.6-50 MG TAB PO SCH ×2 (08:35→21:20)
[2021-02-25] MEDS: Allopurinol 100 MG TAB PO SCH (08:35)
[2021-02-25] MEDS: Apixaban 5 MG TAB PO SCH ×2 (08:35→21:21)
[2021-02-25] MEDS: Furosemide 40 MG TAB PO SCH (08:36)
[2021-02-25] MEDS: traMADol HCl 50 MG TAB PO PRN ×2 (11:07→18:10)
[2021-02-25] MEDS: Lidocaine 5% Patch TD SCH (17:59)
[2021-02-26] MEDS: Levothyroxine Sodium 25 MCG TAB PO SCH (05:55)
[2021-02-26] MEDS: traMADol HCl 50 MG TAB PO PRN (05:56)
[2021-02-26] MEDS: Transdermal Patch Removal TOP SCH (06:16)
[2021-02-26] MEDS: Lisinopril 5 MG TAB PO SCH (08:45)
[2021-02-26] MEDS: Cyanocobalamin (Vitamin B-12) 1,000 MCG TAB PO SCH (08:49)
[2021-02-26] MEDS: Multivitamin W/ Minerals 1 TAB PO SCH (08:49)
[2021-02-26] MEDS: Atorvastatin Calcium 40 MG TAB PO SCH (08:49)
[2021-02-26] MEDS: Senokot S 8.6-50 MG TAB PO SCH ×2 (08:49→20:55)
[2021-02-26] MEDS: Apixaban 5 MG TAB PO SCH ×2 (08:49→20:55)
[2021-02-26] MEDS: Furosemide 40 MG TAB PO SCH (08:49)
[2021-02-26] MEDS: Potassium Bicarbonate/Cit Ac 20 MEQ TAB PO SCH ×2 (08:49→20:55)
[2021-02-26] MEDS: Carvedilol 3.125 MG TAB PO SCH ×2 (08:50→18:03)
[2021-02-26] MEDS: Allopurinol 100 MG TAB PO SCH (08:50)
[2021-02-26] MEDS: Clopidogrel Bisulfate 75 MG TAB PO SCH (08:50)
[2021-02-26] MEDS: Stress 600 With Zinc 1 TAB PO SCH (08:50)
[2021-02-26] MEDS: Lidocaine 5% Patch TD SCH (18:03)
[2021-02-26] MEDS: ALPRAZolam 0.25 MG TAB PO PRN (19:35)
[2021-02-27] MEDS: Transdermal Patch Removal TOP SCH (05:32)
[2021-02-27] MEDS: Levothyroxine Sodium 25 MCG TAB PO SCH (05:32)
[2021-02-27 05:52] LABS: Anion Gap 13 mmol/L (10-20); BUN (Urea Nitrogen) 16 mg/dL (9.8-20.1); Calc. Creatinine Clearance 112 mL/min (70-130); Calcium 8.4 mg/dL (7.8-10.44); Carbon Dioxide 28 mmol/L (23-31); Chloride 101 mmol/L (98-107); Glucose 91 mg/dL (83-110); Potassium 3.7 mmol/L (3.5-5.1); Sodium 138 mmol/L (136-145)
[2021-02-27] MEDS: Clopidogrel Bisulfate 75 MG TAB PO SCH (08:49)
[2021-02-27] MEDS: Allopurinol 100 MG TAB PO SCH (08:49)
[2021-02-27] MEDS: Stress 600 With Zinc 1 TAB PO SCH (08:49)
[2021-02-27] MEDS: Furosemide 40 MG TAB PO SCH (08:49)
[2021-02-27] MEDS: Apixaban 5 MG TAB PO SCH ×2 (08:49→21:04)
[2021-02-27] MEDS: Lisinopril 5 MG TAB PO SCH (08:49)
[2021-02-27] MEDS: Multivitamin W/ Minerals 1 TAB PO SCH (08:49)
[2021-02-27] MEDS: Atorvastatin Calcium 40 MG TAB PO SCH (08:49)
[2021-02-27] MEDS: Carvedilol 3.125 MG TAB PO SCH ×2 (08:49→17:02)
[2021-02-27] MEDS: Senokot S 8.6-50 MG TAB PO SCH ×2 (08:49→21:04)
[2021-02-27] MEDS: Cyanocobalamin (Vitamin B-12) 1,000 MCG TAB PO SCH (08:49)
[2021-02-27] MEDS: Potassium Bicarbonate/Cit Ac 20 MEQ TAB PO SCH ×2 (08:50→21:04)
[2021-02-27] MEDS: Lidocaine 5% Patch TD SCH (17:02)
[2021-02-27] MEDS: ALPRAZolam 0.25 MG TAB PO PRN (19:28)
[2021-02-28] MEDS: Levothyroxine Sodium 25 MCG TAB PO SCH (05:48)
[2021-02-28] MEDS: Transdermal Patch Removal TOP SCH (05:56)
[2021-02-28] MEDS: Stress 600 With Zinc 1 TAB PO SCH (09:13)
[2021-02-28] MEDS: Senokot S 8.6-50 MG TAB PO SCH ×2 (09:14→20:05)
[2021-02-28] MEDS: Carvedilol 3.125 MG TAB PO SCH ×2 (09:14→17:41)
[2021-02-28] MEDS: Clopidogrel Bisulfate 75 MG TAB PO SCH (09:14)
[2021-02-28] MEDS: Atorvastatin Calcium 40 MG TAB PO SCH (09:14)
[2021-02-28] MEDS: Potassium Bicarbonate/Cit Ac 20 MEQ TAB PO SCH ×2 (09:14→20:05)
[2021-02-28] MEDS: Lisinopril 5 MG TAB PO SCH (09:14)
[2021-02-28] MEDS: Cyanocobalamin (Vitamin B-12) 1,000 MCG TAB PO SCH (09:15)
[2021-02-28] MEDS: Apixaban 5 MG TAB PO SCH ×2 (09:15→20:05)
[2021-02-28] MEDS: Multivitamin W/ Minerals 1 TAB PO SCH (09:16)
[2021-02-28] MEDS: Allopurinol 100 MG TAB PO SCH (09:16)
[2021-02-28] MEDS: Furosemide 40 MG TAB PO SCH (09:16)
[2021-02-28] MEDS: Lidocaine 5% Patch TD SCH (17:41)
[2021-02-28] MEDS: traMADol HCl 50 MG TAB PO PRN (22:00)
[2021-02-28] MEDS: ALPRAZolam 0.25 MG TAB PO PRN (22:01)
[2021-03-01] MEDS: Levothyroxine Sodium 25 MCG TAB PO SCH (05:26)
[2021-03-01] MEDS: Transdermal Patch Removal TOP SCH (05:47)
[2021-03-01] MEDS: Allopurinol 100 MG TAB PO SCH (08:25)
[2021-03-01] MEDS: Furosemide 40 MG TAB PO SCH (08:25)
[2021-03-01] MEDS: Cyanocobalamin (Vitamin B-12) 1,000 MCG TAB PO SCH (08:25)
[2021-03-01] MEDS: Apixaban 5 MG TAB PO SCH (08:25)
[2021-03-01] MEDS: Potassium Bicarbonate/Cit Ac 20 MEQ TAB PO SCH (08:25)
[2021-03-01] MEDS: Atorvastatin Calcium 40 MG TAB PO SCH (08:25)
[2021-03-01] MEDS: Stress 600 With Zinc 1 TAB PO SCH (08:25)
[2021-03-01] MEDS: Multivitamin W/ Minerals 1 TAB PO SCH (08:25)
[2021-03-01] MEDS: Carvedilol 3.125 MG TAB PO SCH ×2 (08:25→17:08)
[2021-03-01] MEDS: Senokot S 8.6-50 MG TAB PO SCH (08:25)
[2021-03-01] MEDS: Clopidogrel Bisulfate 75 MG TAB PO SCH (08:25)
[2021-03-01] MEDS: Lisinopril 5 MG TAB PO SCH (08:26)
[2021-03-01 16:55] VITALS: BP 136/71; TEMP 97.8
[2021-03-01] MEDS: Lidocaine 5% Patch TD SCH (17:08)
== END 2021-03-01 19:02 | disposition home or self-care (01) | DRG 947 ==
LOC: MADMS 18:34
PROVIDERS: ADMIT Family Medicine; ATTEND Family Medicine
DX: R53.1 Weakness (principal); I26.99 Other pulmonary embolism without acute cor pulmonale; I13.0 Hypertensive heart and chronic kidney disease with heart failure and stage 1 through stage 4 chronic kidney disease, or unspecified chronic kidney disease; E03.9 Hypothyroidism, unspecified; I25.10 Atherosclerotic heart disease of native coronary artery without angina pectoris; F41.9 Anxiety disorder, unspecified; N18.9 Chronic kidney disease, unspecified; F41.8 Other specified anxiety disorders; I50.9 Heart failure, unspecified; I87.2 Venous insufficiency (chronic) (peripheral); H91.90 Unspecified hearing loss, unspecified ear; F32.9 Major depressive disorder, single episode, unspecified; R53.81 Other malaise; E78.5 Hyperlipidemia, unspecified; Z90.49 Acquired absence of other specified parts of digestive tract; Z98.890 Other specified postprocedural states; Z79.01 Long term (current) use of anticoagulants; Z79.02 Long term (current) use of antithrombotics/antiplatelets; Z79.899 Other long term (current) drug therapy; Z95.5 Presence of coronary angioplasty implant and graft; Z88.5 Allergy status to narcotic agent; Z88.6 Allergy status to analgesic agent
CPT/HCPCS: 36415; 80048; 80053; 85025

== ENCOUNTER 2021-03-11 16:11 | Emergency (ER) | payer MEDICARE ==
[~2021-03-11 16:11] MED LIST changes: -Sodium Chloride 0.9% 100 ML BAG ONE; +Sodium Chloride 0.9% 500 ML BAG ONE
[2021-03-11 17:37] LABS: #Basophils 0.1 thou/uL (0.0-0.2); #Eosinphils 0.4 thou/uL (0.0-0.7); #Monocytes 0.4 thou/uL (0.11-0.59); #Neutrophils 4.9 thou/uL (1.40-6.50); %Basophils 1.5 % (0.0-1.0); %Eosinophils 5.3 % (0.0-10.0); %Lymphocytes 23.3 % (21.0-51.0); %Monocytes 5.7 % (0.0-10.0); %Neutrophils 64.1 % (42.0-75.0); Anisocytosis SLIGHT = 6-15 cells (100X) (0-5/hpf); Hemoglobin 11.6 g/dL (12.0-16.0); Hypochromia SLIGHT = 6-15 cells (100X) (0-5/hpf); MDiff Complete? YES; Macrocytosis SLIGHT = 6-15 cells (100X) (0-5/hpf); Mean Corpuscular HGB CONC 31.7 g/dL (32.0-36.0); Mean Corpuscular Hemoglobin 35.1 pg (27.0-31.0); Mean Corpuscular Volume 110.7 fL (78.0-98.0); Mean Platelet Volume 8.3 fL (7.4-10.4); Platelet Count 379 thou/uL (130-400); Platelet Morphology Comment Appears Adequate; RBC Distribution Width 12.9 % (11.5-14.5); Red Blood Cell (RBC) Count 3.29 mill/uL (4.20-5.40); White Blood Cell (WBC) Count 7.7 thou/uL (4.8-10.8)
[2021-03-11 17:46] LABS: ALT (SGPT) 22 U/L (8-55); AST (SGOT) 32 U/L (5-34); Albumin 3.3 g/dL (3.4-4.8); Alkaline Phosphatase 98 U/L (40-110); Anion Gap 18 mmol/L (10-20); BUN (Urea Nitrogen) 34 mg/dL (9.8-20.1); Bilirubin, Total 0.7 mg/dL (0.2-1.2); Calc. Creatinine Clearance 0 mL/min (70-130); Calcium 8.7 mg/dL (7.8-10.44); Carbon Dioxide 18 mmol/L (23-31); Chloride 98 mmol/L (98-107); Globulin 2.7 g/dL (2.4-3.5); Glucose 98 mg/dL (83-110); Magnesium 1.6 mg/dL (1.6-2.6); Potassium 4.3 mmol/L (3.5-5.1); Sodium 130 mmol/L (136-145)
== END 2021-03-11 19:37 | disposition home or self-care (01) ==
LOC: MADERS 16:11
DX: E86.0 Dehydration (principal); T50.905A Adverse effect of unspecified drugs, medicaments and biological substances, initial encounter; E03.9 Hypothyroidism, unspecified; E78.5 Hyperlipidemia, unspecified; I13.0 Hypertensive heart and chronic kidney disease with heart failure and stage 1 through stage 4 chronic kidney disease, or unspecified chronic kidney disease; I50.9 Heart failure, unspecified; N18.9 Chronic kidney disease, unspecified; I25.2 Old myocardial infarction; Z79.01 Long term (current) use of anticoagulants; Z79.899 Other long term (current) drug therapy
CPT/HCPCS: 36415; 71045; 80053; 83605; 83735; 83880; 84484; 85025; 87040; 93005; 94760; J7030

== ENCOUNTER 2021-05-13 13:10 | Inpatient (IN) | payer MEDICARE ==
[2021-05-13] MEDS ORDERED: Fentanyl 100 MCG/2 ML VIAL ONE ×2 (15:55→16:33)
[2021-05-13] MEDS ORDERED: Ketorolac Tromethamine 30 MG/ML VIAL ONE (15:56)
[2021-05-13 16:26] LABS: #Basophils 0.1 thou/uL (0.0-0.2); #Eosinphils 0.3 thou/uL (0.0-0.7); #Lymphocytes 1.6 thou/uL (1.20-3.40); #Monocytes 0.5 thou/uL (0.11-0.59); #Neutrophils 7.3 thou/uL (1.40-6.50); %Basophils 0.6 % (0.0-1.0); %Eosinophils 3.2 % (0.0-10.0); %Lymphocytes 16.8 % (21.0-51.0); %Monocytes 4.9 % (0.0-10.0); %Neutrophils 74.4 % (42.0-75.0); Hemoglobin 10.9 g/dL (12.0-16.0); Mean Corpuscular HGB CONC 31.5 g/dL (32.0-36.0); Mean Corpuscular Hemoglobin 33.9 pg (27.0-31.0); Mean Corpuscular Volume 107.5 fL (78.0-98.0); Mean Platelet Volume 9.8 fL (7.4-10.4); Platelet Count 247 thou/uL (130-400); RBC Distribution Width 12.7 % (11.5-14.5); Red Blood Cell (RBC) Count 3.22 mill/uL (4.20-5.40); White Blood Cell (WBC) Count 9.8 thou/uL (4.8-10.8)
[2021-05-13 16:27] LABS: ALT (SGPT) 16 U/L (8-55); AST (SGOT) 16 U/L (5-34); Albumin 3.3 g/dL (3.4-4.8); Alkaline Phosphatase 111 U/L (40-110); Anion Gap 15 mmol/L (10-20); BUN (Urea Nitrogen) 18 mg/dL (9.8-20.1); Bilirubin, Total 0.8 mg/dL (0.2-1.2); Calc. Creatinine Clearance 0 mL/min (70-130); Calcium 9.3 mg/dL (7.8-10.44); Carbon Dioxide 20 mmol/L (23-31); Chloride 109 mmol/L (98-107); Glucose 106 mg/dL (83-110); MDiff Complete? YES; Macrocytosis SLIGHT = 6-15 cells (100X) (0-5/hpf); Potassium 3.6 mmol/L (3.5-5.1); Protein, Total 6.3 g/dL (5.8-8.1); Sodium 140 mmol/L (136-145)
[2021-05-13 17:19] LABS: SARS-CoV-2 NAA Rapid Test Not Detected (NotDetected)
[2021-05-13 17:25] VITALS: BMI 35.4
[2021-05-13] MEDS ORDERED: Fentanyl 100 MCG/2 ML VIAL SLOW IVP PRN (17:43)
[2021-05-13] MEDS ORDERED: Ondansetron ODT 4 MG TAB SL PRN (17:45)
[2021-05-13] MEDS ORDERED: Ondansetron PF 4 MG/2 ML Vial IVP PRN (17:45)
[2021-05-13] MEDS: Apixaban 5 MG TAB PO SCH (20:24)
[2021-05-13] MEDS: Melatonin 3 MG TAB PO SCH (20:25)
[2021-05-13] MEDS ORDERED: Carvedilol 3.125 MG TAB PO SCH (21:00)
[2021-05-13] MEDS: traMADol HCl 50 MG TAB PO PRN (22:26)
[2021-05-14 05:23] LABS: #Basophils 0.1 thou/uL (0.0-0.2); #Eosinphils 0.5 thou/uL (0.0-0.7); #Lymphocytes 2.2 thou/uL (1.20-3.40); #Monocytes 0.4 thou/uL (0.11-0.59); %Basophils 0.9 % (0.0-1.0); %Eosinophils 5.8 % (0.0-10.0); %Lymphocytes 23.6 % (21.0-51.0); %Monocytes 4.6 % (0.0-10.0); Hemoglobin 10.6 g/dL (12.0-16.0); Large Platelets SLIGHT; MDiff Complete? YES; Macrocytosis SLIGHT = 6-15 cells (100X) (0-5/hpf); Mean Corpuscular HGB CONC 32.9 g/dL (32.0-36.0); Mean Corpuscular Hemoglobin 34.8 pg (27.0-31.0); Mean Corpuscular Volume 105.9 fL (78.0-98.0); Mean Platelet Volume 8.6 fL (7.4-10.4); Platelet Count 231 thou/uL (130-400); Platelet Morphology Comment Appears Adequate; Poikilocytosis SLIGHT = 6-15 cells (100X) (0-5/hpf); RBC Distribution Width 12.7 % (11.5-14.5); Red Blood Cell (RBC) Count 3.03 mill/uL (4.20-5.40); White Blood Cell (WBC) Count 9.3 thou/uL (4.8-10.8)
[2021-05-14 05:25] LABS: Anion Gap 12 mmol/L (10-20); BUN (Urea Nitrogen) 18 mg/dL (9.8-20.1); Calc. Creatinine Clearance 117 mL/min (70-130); Calcium 9.3 mg/dL (7.8-10.44); Carbon Dioxide 21 mmol/L (23-31); Chloride 112 mmol/L (98-107); Glucose 101 mg/dL (83-110); Potassium 3.7 mmol/L (3.5-5.1); Sodium 141 mmol/L (136-145)
[2021-05-14] MEDS: Levothyroxine Sodium 25 MCG TAB PO SCH (06:00)
[2021-05-14] MEDS: traMADol HCl 50 MG TAB PO PRN ×3 (06:11→23:24)
[2021-05-14] MEDS: Clopidogrel Bisulfate 75 MG TAB PO SCH (08:56)
[2021-05-14] MEDS: Lisinopril 5 MG TAB PO SCH (08:56)
[2021-05-14] MEDS: Atorvastatin Calcium 40 MG TAB PO SCH (08:56)
[2021-05-14] MEDS: Stress 600 With Zinc 1 TAB PO SCH (08:56)
[2021-05-14] MEDS: Magnesium Oxide 400 MG TAB PO SCH (08:56)
[2021-05-14] MEDS: Potassium Bicarbonate/Cit Ac 20 MEQ TAB PO SCH (08:56)
[2021-05-14] MEDS: Calcium Carbonate 600 MG + Vit D TAB PO SCH (08:56)
[2021-05-14] MEDS: Apixaban 5 MG TAB PO SCH ×2 (08:56→20:53)
[2021-05-14] MEDS: Carvedilol 3.125 MG TAB PO SCH ×2 (08:56→17:21)
[2021-05-14] MEDS: Cholecalciferol 1,000 UNITS (25 MCG) TAB PO SCH (08:56)
[2021-05-14] MEDS: Furosemide 40 MG TAB PO SCH (08:56)
[2021-05-14] MEDS: Melatonin 3 MG TAB PO SCH (20:53)
[2021-05-15] MEDS: Levothyroxine Sodium 25 MCG TAB PO SCH (06:03)
[2021-05-15] MEDS: Carvedilol 3.125 MG TAB PO SCH ×2 (08:23→17:45)
[2021-05-15] MEDS: Atorvastatin Calcium 40 MG TAB PO SCH (08:23)
[2021-05-15] MEDS: Furosemide 40 MG TAB PO SCH (08:23)
[2021-05-15] MEDS: Potassium Bicarbonate/Cit Ac 20 MEQ TAB PO SCH (08:23)
[2021-05-15] MEDS: Stress 600 With Zinc 1 TAB PO SCH (08:23)
[2021-05-15] MEDS: Calcium Carbonate 600 MG + Vit D TAB PO SCH (08:23)
[2021-05-15] MEDS: Cholecalciferol 1,000 UNITS (25 MCG) TAB PO SCH (08:23)
[2021-05-15] MEDS: Apixaban 5 MG TAB PO SCH ×2 (08:23→21:12)
[2021-05-15] MEDS: Clopidogrel Bisulfate 75 MG TAB PO SCH (08:24)
[2021-05-15] MEDS: Lisinopril 5 MG TAB PO SCH (08:24)
[2021-05-15] MEDS: Magnesium Oxide 400 MG TAB PO SCH (08:24)
[2021-05-15] MEDS: traMADol HCl 50 MG TAB PO PRN ×3 (08:25→21:11)
[2021-05-15] MEDS: Lorazepam 1 MG TAB PO PRN (13:28)
[2021-05-15] MEDS: Melatonin 3 MG TAB PO SCH (21:12)
[2021-05-16] MEDS: Levothyroxine Sodium 25 MCG TAB PO SCH (05:31)
[2021-05-16] MEDS: traMADol HCl 50 MG TAB PO PRN ×3 (05:41→22:35)
[2021-05-16] MEDS: Stress 600 With Zinc 1 TAB PO SCH (08:03)
[2021-05-16] MEDS: Carvedilol 3.125 MG TAB PO SCH ×2 (08:03→17:08)
[2021-05-16] MEDS: Calcium Carbonate 600 MG + Vit D TAB PO SCH (08:03)
[2021-05-16] MEDS: Clopidogrel Bisulfate 75 MG TAB PO SCH (08:04)
[2021-05-16] MEDS: Lisinopril 5 MG TAB PO SCH (08:04)
[2021-05-16] MEDS: Apixaban 5 MG TAB PO SCH ×2 (08:04→20:29)
[2021-05-16] MEDS: Magnesium Oxide 400 MG TAB PO SCH (08:06)
[2021-05-16] MEDS: Atorvastatin Calcium 40 MG TAB PO SCH (08:06)
[2021-05-16] MEDS: Furosemide 40 MG TAB PO SCH (08:06)
[2021-05-16] MEDS: Potassium Bicarbonate/Cit Ac 20 MEQ TAB PO SCH (08:07)
[2021-05-16] MEDS: Bisacodyl 5 MG TAB PO PRN (08:07)
[2021-05-16] MEDS: Cholecalciferol 1,000 UNITS (25 MCG) TAB PO SCH (10:22)
[2021-05-16] MEDS: Lorazepam 1 MG TAB PO PRN ×2 (12:45→18:06)
[2021-05-16] MEDS: Melatonin 3 MG TAB PO SCH (20:29)
[2021-05-17 05:27] LABS: Hemoglobin 10.2 g/dL (12.0-16.0); Platelet Count 272 thou/uL (130-400)
[2021-05-17] MEDS: Levothyroxine Sodium 25 MCG TAB PO SCH (05:35)
[2021-05-17] MEDS: traMADol HCl 50 MG TAB PO PRN ×3 (05:38→21:57)
[2021-05-17] MEDS: Stress 600 With Zinc 1 TAB PO SCH (08:10)
[2021-05-17] MEDS: Clopidogrel Bisulfate 75 MG TAB PO SCH (08:10)
[2021-05-17] MEDS: Magnesium Oxide 400 MG TAB PO SCH (08:10)
[2021-05-17] MEDS: Calcium Carbonate 600 MG + Vit D TAB PO SCH (08:10)
[2021-05-17] MEDS: Cholecalciferol 1,000 UNITS (25 MCG) TAB PO SCH (08:11)
[2021-05-17] MEDS: Furosemide 40 MG TAB PO SCH (08:11)
[2021-05-17] MEDS: Atorvastatin Calcium 40 MG TAB PO SCH (08:11)
[2021-05-17] MEDS: Lisinopril 5 MG TAB PO SCH (08:11)
[2021-05-17] MEDS: Carvedilol 3.125 MG TAB PO SCH ×2 (08:11→17:22)
[2021-05-17] MEDS: Apixaban 5 MG TAB PO SCH ×2 (08:11→21:52)
[2021-05-17] MEDS: Potassium Bicarbonate/Cit Ac 20 MEQ TAB PO SCH (08:11)
[2021-05-17] MEDS: Bisacodyl 5 MG TAB PO PRN (11:33)
[2021-05-17] MEDS: Lorazepam 1 MG TAB PO PRN (17:25)
[2021-05-17] MEDS: Melatonin 3 MG TAB PO SCH (21:52)
[2021-05-18] MEDS: Levothyroxine Sodium 25 MCG TAB PO SCH (05:01)
[2021-05-18] MEDS: traMADol HCl 50 MG TAB PO PRN ×3 (05:03→21:49)
[2021-05-18] MEDS: Apixaban 5 MG TAB PO SCH ×2 (08:27→21:48)
[2021-05-18] MEDS: Magnesium Oxide 400 MG TAB PO SCH (08:27)
[2021-05-18] MEDS: Cholecalciferol 1,000 UNITS (25 MCG) TAB PO SCH (08:27)
[2021-05-18] MEDS: Stress 600 With Zinc 1 TAB PO SCH (08:27)
[2021-05-18] MEDS: Atorvastatin Calcium 40 MG TAB PO SCH (08:27)
[2021-05-18] MEDS: Clopidogrel Bisulfate 75 MG TAB PO SCH (08:27)
[2021-05-18] MEDS: Calcium Carbonate 600 MG + Vit D TAB PO SCH (08:28)
[2021-05-18] MEDS: Potassium Bicarbonate/Cit Ac 20 MEQ TAB PO SCH (08:28)
[2021-05-18] MEDS: Furosemide 40 MG TAB PO SCH (08:28)
[2021-05-18] MEDS: Carvedilol 3.125 MG TAB PO SCH ×2 (08:38→16:55)
[2021-05-18] MEDS: Lisinopril 5 MG TAB PO SCH (08:39)
[2021-05-18] MEDS: Melatonin 3 MG TAB PO SCH (21:48)
[2021-05-19] MEDS: Levothyroxine Sodium 25 MCG TAB PO SCH (05:08)
[2021-05-19] MEDS: Potassium Bicarbonate/Cit Ac 20 MEQ TAB PO SCH (07:59)
[2021-05-19] MEDS: Magnesium Oxide 400 MG TAB PO SCH (08:00)
[2021-05-19] MEDS: Clopidogrel Bisulfate 75 MG TAB PO SCH (08:00)
[2021-05-19] MEDS: Atorvastatin Calcium 40 MG TAB PO SCH (08:00)
[2021-05-19] MEDS: Stress 600 With Zinc 1 TAB PO SCH (08:00)
[2021-05-19] MEDS: Apixaban 5 MG TAB PO SCH (08:00)
[2021-05-19] MEDS: Calcium Carbonate 600 MG + Vit D TAB PO SCH (08:00)
[2021-05-19] MEDS: Carvedilol 3.125 MG TAB PO SCH (08:00)
[2021-05-19] MEDS: Cholecalciferol 1,000 UNITS (25 MCG) TAB PO SCH (08:00)
[2021-05-19] MEDS: Furosemide 40 MG TAB PO SCH (08:00)
[2021-05-19] MEDS: Lisinopril 5 MG TAB PO SCH (08:00)
[2021-05-19] MEDS ORDERED: traMADol HCl 50 MG TAB PO PRN ×2 (09:20→09:23)
[2021-05-19] MEDS: Lorazepam 1 MG TAB PO PRN (13:19)
[2021-05-19 13:22] VITALS: BP 110/61; TEMP 97.6
[2021-05-19] MEDS ORDERED: Mupirocin 2% Ointment 22 GM Tube TOP SCH (21:00)
== END 2021-05-19 14:25 | disposition swing bed (61) | DRG 536 ==
LOC: MADERS 13:10 → MADMS 15:52
PROVIDERS: ADMIT Family Medicine; ATTEND Family Medicine
DX: S32.491A Other specified fracture of right acetabulum, initial encounter for closed fracture (principal); I51.81 Takotsubo syndrome; E03.9 Hypothyroidism, unspecified; E78.5 Hyperlipidemia, unspecified; I25.10 Atherosclerotic heart disease of native coronary artery without angina pectoris; N18.9 Chronic kidney disease, unspecified; E66.9 Obesity, unspecified; F41.9 Anxiety disorder, unspecified; I12.9 Hypertensive chronic kidney disease with stage 1 through stage 4 chronic kidney disease, or unspecified chronic kidney disease; F32.9 Major depressive disorder, single episode, unspecified; W19.XXXA Unspecified fall, initial encounter; Z95.5 Presence of coronary angioplasty implant and graft; Y92.008 Other place in unspecified non-institutional (private) residence as the place of occurrence of the external cause; I25.2 Old myocardial infarction; Z90.49 Acquired absence of other specified parts of digestive tract; Z98.51 Tubal ligation status; Z98.84 Bariatric surgery status; Z88.5 Allergy status to narcotic agent; Z86.711 Personal history of pulmonary embolism; Z79.01 Long term (current) use of anticoagulants; Z68.35 Body mass index [BMI] 35.0-35.9, adult
CPT/HCPCS: 0240U; 36415; 72192; 80048; 80053; 82565; 85014; 85018; 85025; 85049; 96374; 96375; 96376; J1885; J3010; Q0162

== ENCOUNTER 2021-05-19 14:47 | Inpatient (IN) | payer MEDICARE ==
[2021-05-19 14:53] VITALS: BMI 35.4
[2021-05-19] MEDS ORDERED: Ondansetron ODT 4 MG TAB PO PRN (16:57)
[2021-05-19] MEDS: Carvedilol 3.125 MG TAB PO SCH (17:45)
[2021-05-19] MEDS: Lorazepam 1 MG TAB PO PRN (19:43)
[2021-05-19] MEDS: Melatonin 3 MG TAB PO SCH (21:37)
[2021-05-19] MEDS: Mupirocin 2% Ointment 22 GM Tube TOP SCH (21:38)
[2021-05-19] MEDS: Apixaban 5 MG TAB PO SCH (21:38)
[2021-05-19] MEDS: Atorvastatin Calcium 40 MG TAB PO SCH (21:38)
[2021-05-19] MEDS: traMADol HCl 50 MG TAB PO PRN (21:47)
[2021-05-19] MEDS: Bisacodyl 5 MG TAB PO PRN (21:48)
[2021-05-20 05:33] LABS: Hemoglobin 9.8 g/dL (12.0-16.0); Platelet Count 335 thou/uL (130-400)
[2021-05-20] MEDS: traMADol HCl 50 MG TAB PO PRN ×2 (05:50→22:55)
[2021-05-20] MEDS: Cholecalciferol 1,000 UNITS (25 MCG) TAB PO SCH (08:03)
[2021-05-20] MEDS: Mupirocin 2% Ointment 22 GM Tube TOP SCH ×2 (08:03→21:00)
[2021-05-20] MEDS: Apixaban 5 MG TAB PO SCH ×2 (08:03→21:04)
[2021-05-20] MEDS: Calcium Carbonate 600 MG + Vit D TAB PO SCH (08:04)
[2021-05-20] MEDS: Stress 600 With Zinc 1 TAB PO SCH (08:04)
[2021-05-20] MEDS: Magnesium Oxide 400 MG TAB PO SCH (08:04)
[2021-05-20] MEDS: Clopidogrel Bisulfate 75 MG TAB PO SCH (08:04)
[2021-05-20] MEDS: Lisinopril 5 MG TAB PO SCH (08:04)
[2021-05-20] MEDS: Furosemide 40 MG TAB PO SCH (08:04)
[2021-05-20] MEDS: Potassium Bicarbonate/Cit Ac 20 MEQ TAB PO SCH (08:04)
[2021-05-20] MEDS: Carvedilol 3.125 MG TAB PO SCH ×2 (08:04→17:01)
[2021-05-20] MEDS: Bisacodyl 10 MG SUPP PR PRN (14:41)
[2021-05-20] MEDS: Atorvastatin Calcium 40 MG TAB PO SCH (21:03)
[2021-05-20] MEDS: Melatonin 3 MG TAB PO SCH (21:04)
[2021-05-20] MEDS: Lorazepam 1 MG TAB PO PRN (21:22)
[2021-05-21] MEDS: Levothyroxine Sodium 25 MCG TAB PO SCH (07:05)
[2021-05-21] MEDS: traMADol HCl 50 MG TAB PO PRN ×2 (07:07→21:36)
[2021-05-21] MEDS: Potassium Bicarbonate/Cit Ac 20 MEQ TAB PO SCH (08:06)
[2021-05-21] MEDS: Lisinopril 5 MG TAB PO SCH (08:06)
[2021-05-21] MEDS: Stress 600 With Zinc 1 TAB PO SCH (08:06)
[2021-05-21] MEDS: Calcium Carbonate 600 MG + Vit D TAB PO SCH (08:07)
[2021-05-21] MEDS: Apixaban 5 MG TAB PO SCH ×2 (08:07→20:45)
[2021-05-21] MEDS: Bisacodyl 5 MG TAB PO PRN (08:07)
[2021-05-21] MEDS: Carvedilol 3.125 MG TAB PO SCH ×2 (08:08→16:38)
[2021-05-21] MEDS: Clopidogrel Bisulfate 75 MG TAB PO SCH (08:08)
[2021-05-21] MEDS: Furosemide 40 MG TAB PO SCH (08:08)
[2021-05-21] MEDS: Cholecalciferol 1,000 UNITS (25 MCG) TAB PO SCH (08:08)
[2021-05-21] MEDS: Magnesium Oxide 400 MG TAB PO SCH (08:08)
[2021-05-21] MEDS: Mupirocin 2% Ointment 22 GM Tube TOP SCH ×2 (12:12→20:47)
[2021-05-21] MEDS: Atorvastatin Calcium 40 MG TAB PO SCH (20:45)
[2021-05-21] MEDS: Melatonin 3 MG TAB PO SCH (20:45)
[2021-05-21] MEDS: Lorazepam 1 MG TAB PO PRN (20:47)
[2021-05-22] MEDS: Levothyroxine Sodium 25 MCG TAB PO SCH (05:02)
[2021-05-22] MEDS: Potassium Bicarbonate/Cit Ac 20 MEQ TAB PO SCH (09:10)
[2021-05-22] MEDS: Lisinopril 5 MG TAB PO SCH (09:10)
[2021-05-22] MEDS: Carvedilol 3.125 MG TAB PO SCH ×2 (09:10→16:27)
[2021-05-22] MEDS: Calcium Carbonate 600 MG + Vit D TAB PO SCH (09:10)
[2021-05-22] MEDS: Stress 600 With Zinc 1 TAB PO SCH (09:10)
[2021-05-22] MEDS: Furosemide 40 MG TAB PO SCH (09:11)
[2021-05-22] MEDS: Clopidogrel Bisulfate 75 MG TAB PO SCH (09:11)
[2021-05-22] MEDS: Mupirocin 2% Ointment 22 GM Tube TOP SCH ×2 (09:11→21:14)
[2021-05-22] MEDS: Apixaban 5 MG TAB PO SCH ×2 (09:11→21:11)
[2021-05-22] MEDS: Magnesium Oxide 400 MG TAB PO SCH (09:11)
[2021-05-22] MEDS: Cholecalciferol 1,000 UNITS (25 MCG) TAB PO SCH (09:11)
[2021-05-22] MEDS: Bisacodyl 10 MG SUPP PR PRN (14:45)
[2021-05-22] MEDS: Bisacodyl 5 MG TAB PO PRN (16:27)
[2021-05-22] MEDS: Lorazepam 1 MG TAB PO PRN (21:10)
[2021-05-22] MEDS: Atorvastatin Calcium 40 MG TAB PO SCH (21:11)
[2021-05-22] MEDS: Melatonin 3 MG TAB PO SCH (21:11)
[2021-05-23] MEDS: traMADol HCl 50 MG TAB PO PRN ×2 (02:27→21:15)
[2021-05-23] MEDS: Levothyroxine Sodium 25 MCG TAB PO SCH (05:13)
[2021-05-23] MEDS: Apixaban 5 MG TAB PO SCH ×2 (09:15→20:29)
[2021-05-23] MEDS: Calcium Carbonate 600 MG + Vit D TAB PO SCH (09:15)
[2021-05-23] MEDS: Magnesium Oxide 400 MG TAB PO SCH (09:15)
[2021-05-23] MEDS: Stress 600 With Zinc 1 TAB PO SCH (09:15)
[2021-05-23] MEDS: Furosemide 40 MG TAB PO SCH (09:15)
[2021-05-23] MEDS: Carvedilol 3.125 MG TAB PO SCH ×2 (09:15→17:13)
[2021-05-23] MEDS: Clopidogrel Bisulfate 75 MG TAB PO SCH (09:15)
[2021-05-23] MEDS: Cholecalciferol 1,000 UNITS (25 MCG) TAB PO SCH (09:15)
[2021-05-23] MEDS: Lisinopril 5 MG TAB PO SCH (09:15)
[2021-05-23] MEDS: Potassium Bicarbonate/Cit Ac 20 MEQ TAB PO SCH (09:15)
[2021-05-23] MEDS: Mupirocin 2% Ointment 22 GM Tube TOP SCH ×2 (09:16→20:29)
[2021-05-23] MEDS: Lorazepam 1 MG TAB PO PRN (18:20)
[2021-05-23] MEDS: Melatonin 3 MG TAB PO SCH (20:29)
[2021-05-23] MEDS: Atorvastatin Calcium 40 MG TAB PO SCH (20:31)
[2021-05-24] MEDS: Levothyroxine Sodium 25 MCG TAB PO SCH (05:28)
[2021-05-24] MEDS: traMADol HCl 50 MG TAB PO PRN ×2 (07:22→21:21)
[2021-05-24] MEDS: Potassium Bicarbonate/Cit Ac 20 MEQ TAB PO SCH (08:32)
[2021-05-24] MEDS: Cholecalciferol 1,000 UNITS (25 MCG) TAB PO SCH (08:33)
[2021-05-24] MEDS: Clopidogrel Bisulfate 75 MG TAB PO SCH (08:33)
[2021-05-24] MEDS: Calcium Carbonate 600 MG + Vit D TAB PO SCH (08:33)
[2021-05-24] MEDS: Furosemide 40 MG TAB PO SCH (08:33)
[2021-05-24] MEDS: Magnesium Oxide 400 MG TAB PO SCH (08:33)
[2021-05-24] MEDS: Stress 600 With Zinc 1 TAB PO SCH (08:33)
[2021-05-24] MEDS: Lisinopril 5 MG TAB PO SCH (08:34)
[2021-05-24] MEDS: Carvedilol 3.125 MG TAB PO SCH ×2 (08:35→17:41)
[2021-05-24] MEDS: Apixaban 5 MG TAB PO SCH ×2 (08:36→21:21)
[2021-05-24] MEDS: Mupirocin 2% Ointment 22 GM Tube TOP SCH ×2 (09:10→21:21)
[2021-05-24] MEDS: Polyethylene Glycol 3350 17 GM Packet PO SCH (09:11)
[2021-05-24] MEDS: Melatonin 3 MG TAB PO SCH (21:20)
[2021-05-24] MEDS: Atorvastatin Calcium 40 MG TAB PO SCH (21:21)
[2021-05-25 05:29] LABS: Hemoglobin 10.1 g/dL (12.0-16.0); Platelet Count 356 thou/uL (130-400)
[2021-05-25] MEDS: traMADol HCl 50 MG TAB PO PRN ×2 (05:38→21:18)
[2021-05-25] MEDS: Levothyroxine Sodium 25 MCG TAB PO SCH (05:40)
[2021-05-25] MEDS: Calcium Carbonate 600 MG + Vit D TAB PO SCH (08:58)
[2021-05-25] MEDS: Stress 600 With Zinc 1 TAB PO SCH (08:58)
[2021-05-25] MEDS: Apixaban 5 MG TAB PO SCH ×2 (08:58→21:19)
[2021-05-25] MEDS: Lisinopril 5 MG TAB PO SCH (08:58)
[2021-05-25] MEDS: Magnesium Oxide 400 MG TAB PO SCH (08:58)
[2021-05-25] MEDS: Cholecalciferol 1,000 UNITS (25 MCG) TAB PO SCH (08:58)
[2021-05-25] MEDS: Furosemide 40 MG TAB PO SCH (08:58)
[2021-05-25] MEDS: Potassium Bicarbonate/Cit Ac 20 MEQ TAB PO SCH (08:59)
[2021-05-25] MEDS: Carvedilol 3.125 MG TAB PO SCH ×2 (08:59→18:13)
[2021-05-25] MEDS: Clopidogrel Bisulfate 75 MG TAB PO SCH (08:59)
[2021-05-25] MEDS: Mupirocin 2% Ointment 22 GM Tube TOP SCH ×2 (09:04→21:19)
[2021-05-25] MEDS: Polyethylene Glycol 3350 17 GM Packet PO SCH (09:04)
[2021-05-25] MEDS: Lorazepam 1 MG TAB PO PRN ×2 (09:08→21:18)
[2021-05-25] MEDS ORDERED: predniSONE 20 MG TAB PO SCH (18:00)
[2021-05-25] MEDS: Melatonin 3 MG TAB PO SCH (21:18)
[2021-05-25] MEDS: Atorvastatin Calcium 40 MG TAB PO SCH (21:19)
[2021-05-26 01:54] LABS: SARS-CoV-2 PCR by NAA Not Detected (NotDetected)
[2021-05-26] MEDS: Levothyroxine Sodium 25 MCG TAB PO SCH (05:49)
[2021-05-26] MEDS: Magnesium Oxide 400 MG TAB PO SCH (09:22)
[2021-05-26] MEDS: Furosemide 40 MG TAB PO SCH (09:22)
[2021-05-26] MEDS: Potassium Bicarbonate/Cit Ac 20 MEQ TAB PO SCH (09:22)
[2021-05-26] MEDS: Polyethylene Glycol 3350 17 GM Packet PO SCH (09:22)
[2021-05-26] MEDS: Carvedilol 3.125 MG TAB PO SCH ×2 (09:22→17:45)
[2021-05-26] MEDS: Calcium Carbonate 600 MG + Vit D TAB PO SCH (09:22)
[2021-05-26] MEDS: Stress 600 With Zinc 1 TAB PO SCH (09:22)
[2021-05-26] MEDS: Lisinopril 5 MG TAB PO SCH (09:22)
[2021-05-26] MEDS: Apixaban 5 MG TAB PO SCH ×2 (09:22→21:21)
[2021-05-26] MEDS: Clopidogrel Bisulfate 75 MG TAB PO SCH (09:23)
[2021-05-26] MEDS: Mupirocin 2% Ointment 22 GM Tube TOP SCH ×2 (09:23→21:21)
[2021-05-26] MEDS: Allopurinol 100 MG TAB PO SCH ×2 (09:23→21:21)
[2021-05-26] MEDS: Cholecalciferol 1,000 UNITS (25 MCG) TAB PO SCH (09:23)
[2021-05-26] MEDS: Lorazepam 1 MG TAB PO PRN (21:20)
[2021-05-26] MEDS: traMADol HCl 50 MG TAB PO PRN (21:20)
[2021-05-26] MEDS: Atorvastatin Calcium 40 MG TAB PO SCH (21:21)
[2021-05-26] MEDS: Melatonin 3 MG TAB PO SCH (21:21)
[2021-05-27] MEDS: Levothyroxine Sodium 25 MCG TAB PO SCH (05:49)
[2021-05-27] MEDS: Stress 600 With Zinc 1 TAB PO SCH (08:16)
[2021-05-27] MEDS: Magnesium Oxide 400 MG TAB PO SCH (08:16)
[2021-05-27] MEDS: Polyethylene Glycol 3350 17 GM Packet PO SCH (08:16)
[2021-05-27] MEDS: Lisinopril 5 MG TAB PO SCH (08:16)
[2021-05-27] MEDS: Potassium Bicarbonate/Cit Ac 20 MEQ TAB PO SCH (08:16)
[2021-05-27] MEDS: Cholecalciferol 1,000 UNITS (25 MCG) TAB PO SCH (08:16)
[2021-05-27] MEDS: Calcium Carbonate 600 MG + Vit D TAB PO SCH (08:17)
[2021-05-27] MEDS: Apixaban 5 MG TAB PO SCH ×2 (08:17→21:30)
[2021-05-27] MEDS: Carvedilol 3.125 MG TAB PO SCH ×2 (08:17→17:23)
[2021-05-27] MEDS: Furosemide 40 MG TAB PO SCH (08:17)
[2021-05-27] MEDS: Clopidogrel Bisulfate 75 MG TAB PO SCH (08:17)
[2021-05-27] MEDS: traMADol HCl 50 MG TAB PO PRN (08:17)
[2021-05-27] MEDS: Mupirocin 2% Ointment 22 GM Tube TOP SCH ×2 (08:17→21:31)
[2021-05-27] MEDS: Allopurinol 100 MG TAB PO SCH ×2 (08:17→21:30)
[2021-05-27 13:53] LABS: CCP IgG Antibody 0.5 EliAU/mL (<7 Negative); EliA RAS New Method **** NEW METHOD ****; Rheumatoid Factor IgA Antibody 3.4 IU/mL (<14 Negative); Rheumatoid Factor IgM Antibody Less than 0.5 IU/mL (<3.5 Negative)
[2021-05-27] MEDS: Melatonin 3 MG TAB PO SCH (21:30)
[2021-05-27] MEDS: Atorvastatin Calcium 40 MG TAB PO SCH (21:30)
[2021-05-27] MEDS: Lorazepam 1 MG TAB PO PRN (21:31)
[2021-05-28] MEDS: Levothyroxine Sodium 25 MCG TAB PO SCH (06:10)
[2021-05-28] MEDS: Mupirocin 2% Ointment 22 GM Tube TOP SCH ×2 (08:47→20:39)
[2021-05-28] MEDS: Polyethylene Glycol 3350 17 GM Packet PO SCH (08:47)
[2021-05-28] MEDS: Allopurinol 100 MG TAB PO SCH ×2 (08:49→20:37)
[2021-05-28] MEDS: Apixaban 5 MG TAB PO SCH ×2 (08:49→20:37)
[2021-05-28] MEDS: Lisinopril 5 MG TAB PO SCH (08:49)
[2021-05-28] MEDS: Stress 600 With Zinc 1 TAB PO SCH (08:49)
[2021-05-28] MEDS: Calcium Carbonate 600 MG + Vit D TAB PO SCH (08:49)
[2021-05-28] MEDS: Cholecalciferol 1,000 UNITS (25 MCG) TAB PO SCH (08:49)
[2021-05-28] MEDS: Carvedilol 3.125 MG TAB PO SCH ×2 (08:49→17:29)
[2021-05-28] MEDS: Potassium Bicarbonate/Cit Ac 20 MEQ TAB PO SCH (08:49)
[2021-05-28] MEDS: Furosemide 40 MG TAB PO SCH (08:49)
[2021-05-28] MEDS: Magnesium Oxide 400 MG TAB PO SCH (08:49)
[2021-05-28] MEDS: Clopidogrel Bisulfate 75 MG TAB PO SCH (08:49)
[2021-05-28] MEDS: traMADol HCl 50 MG TAB PO PRN ×2 (08:57→20:36)
[2021-05-28] MEDS ORDERED: predniSONE 20 MG TAB PO SCH (09:15)
[2021-05-28] MEDS: Lorazepam 1 MG TAB PO PRN (20:36)
[2021-05-28] MEDS: Melatonin 3 MG TAB PO SCH (20:37)
[2021-05-28] MEDS: Atorvastatin Calcium 40 MG TAB PO SCH (20:37)
[2021-05-29] MEDS: traMADol HCl 50 MG TAB PO PRN (02:48)
[2021-05-29] MEDS: Levothyroxine Sodium 25 MCG TAB PO SCH (06:10)
[2021-05-29] MEDS: Potassium Bicarbonate/Cit Ac 20 MEQ TAB PO SCH (08:58)
[2021-05-29] MEDS: Polyethylene Glycol 3350 17 GM Packet PO SCH (08:58)
[2021-05-29] MEDS: Apixaban 5 MG TAB PO SCH ×2 (08:59→21:00)
[2021-05-29] MEDS: Magnesium Oxide 400 MG TAB PO SCH (08:59)
[2021-05-29] MEDS: Carvedilol 3.125 MG TAB PO SCH ×2 (08:59→17:19)
[2021-05-29] MEDS: Lisinopril 5 MG TAB PO SCH (08:59)
[2021-05-29] MEDS: Furosemide 40 MG TAB PO SCH (08:59)
[2021-05-29] MEDS: Calcium Carbonate 600 MG + Vit D TAB PO SCH (08:59)
[2021-05-29] MEDS: predniSONE 20 MG TAB PO SCH (09:00)
[2021-05-29] MEDS: Mupirocin 2% Ointment 22 GM Tube TOP SCH ×2 (09:00→21:02)
[2021-05-29] MEDS: Cholecalciferol 1,000 UNITS (25 MCG) TAB PO SCH (09:00)
[2021-05-29] MEDS: Clopidogrel Bisulfate 75 MG TAB PO SCH (09:00)
[2021-05-29] MEDS: Allopurinol 100 MG TAB PO SCH ×2 (09:00→21:00)
[2021-05-29] MEDS: Stress 600 With Zinc 1 TAB PO SCH (09:00)
[2021-05-29] MEDS: Melatonin 3 MG TAB PO SCH (21:00)
[2021-05-29] MEDS: Atorvastatin Calcium 40 MG TAB PO SCH (21:00)
[2021-05-29] MEDS: Lorazepam 1 MG TAB PO PRN (21:02)
[2021-05-30] MEDS: Levothyroxine Sodium 25 MCG TAB PO SCH (05:54)
[2021-05-30] MEDS: Cholecalciferol 1,000 UNITS (25 MCG) TAB PO SCH (08:03)
[2021-05-30] MEDS: Apixaban 5 MG TAB PO SCH (08:03)
[2021-05-30] MEDS: Furosemide 40 MG TAB PO SCH (08:03)
[2021-05-30] MEDS: Calcium Carbonate 600 MG + Vit D TAB PO SCH (08:03)
[2021-05-30] MEDS: predniSONE 20 MG TAB PO SCH (08:03)
[2021-05-30] MEDS: Allopurinol 100 MG TAB PO SCH (08:03)
[2021-05-30] MEDS: Potassium Bicarbonate/Cit Ac 20 MEQ TAB PO SCH (08:03)
[2021-05-30] MEDS: Stress 600 With Zinc 1 TAB PO SCH (08:03)
[2021-05-30] MEDS: Clopidogrel Bisulfate 75 MG TAB PO SCH (08:04)
[2021-05-30] MEDS: Mupirocin 2% Ointment 22 GM Tube TOP SCH (08:04)
[2021-05-30] MEDS: Magnesium Oxide 400 MG TAB PO SCH (08:04)
[2021-05-30] MEDS: Carvedilol 3.125 MG TAB PO SCH ×2 (08:04→16:55)
[2021-05-30] MEDS: Polyethylene Glycol 3350 17 GM Packet PO SCH (08:04)
[2021-05-30] MEDS: Lisinopril 5 MG TAB PO SCH (08:04)
[2021-05-30] MEDS: traMADol HCl 50 MG TAB PO PRN (08:12)
[2021-05-30 17:08] VITALS: BP 145/85; TEMP 98.4
== END 2021-05-30 17:27 | disposition home health service (06) | DRG 560 ==
LOC: MADMS 14:47
PROVIDERS: ADMIT Family Medicine; ATTEND Family Medicine
DX: S32.401D Unspecified fracture of right acetabulum, subsequent encounter for fracture with routine healing (principal); I51.81 Takotsubo syndrome; W19.XXXD Unspecified fall, subsequent encounter; I25.10 Atherosclerotic heart disease of native coronary artery without angina pectoris; F32.9 Major depressive disorder, single episode, unspecified; F41.9 Anxiety disorder, unspecified; E03.9 Hypothyroidism, unspecified; N18.9 Chronic kidney disease, unspecified; E66.9 Obesity, unspecified; E78.5 Hyperlipidemia, unspecified; K59.00 Constipation, unspecified; M10.9 Gout, unspecified; I12.9 Hypertensive chronic kidney disease with stage 1 through stage 4 chronic kidney disease, or unspecified chronic kidney disease; M65.872 Other synovitis and tenosynovitis, left ankle and foot; M65.871 Other synovitis and tenosynovitis, right ankle and foot; Z86.711 Personal history of pulmonary embolism; Z79.01 Long term (current) use of anticoagulants; Z90.49 Acquired absence of other specified parts of digestive tract; Z88.5 Allergy status to narcotic agent; Z88.8 Allergy status to other drugs, medicaments and biological substances; Z95.5 Presence of coronary angioplasty implant and graft; Z68.35 Body mass index [BMI] 35.0-35.9, adult
CPT/HCPCS: 36415; 82565; 83520; 84550; 85014; 85018; 85049; 85652; 86140; 86200; J7512; U0003; U0005

== ENCOUNTER 2022-10-27 13:27 | Outpatient (CLI) | payer MEDICARE, OTHER ==
[2022-10-27 14:32] LABS: ALT (SGPT) 18 U/L (8-55); AST (SGOT) 16 U/L (5-34); Albumin 3.9 g/dL (3.4-4.8); Alkaline Phosphatase 104 U/L (40-110); Anion Gap 13 mmol/L (10-20); BUN (Urea Nitrogen) 20 mg/dL (9.8-20.1); Bilirubin, Total 0.9 mg/dL (0.2-1.2); Calc. Creatinine Clearance 0 mL/min (70-130); Calcium 9.6 mg/dL (7.8-10.44); Carbon Dioxide 20 mmol/L (23-31); Cardiac Risk 2.8 (Less than 4.5); Chloride 111 mmol/L (98-107); Cholesterol 132 mg/dl (< 200 Desired); Estimated GFR 76; Globulin 2.6 g/dL (2.4-3.5); Glucose 97 mg/dL (83-110); HDL Cholesterol 48 mg/dL (>60 Neg Risk); LDL Cholesterol, Calculated 68 mg/dL; Potassium 3.8 mmol/L (3.5-5.1); Protein, Total 6.5 g/dL (5.8-8.1); Sodium 140 mmol/L (136-145); Triglycerides 81 mg/dL (Less than 150)
[2022-10-27 14:38] LABS: #Basophils 0.1 thou/uL (0.0-0.2); #Eosinphils 0.3 thou/uL (0.0-0.7); #Lymphocytes 1.9 thou/uL (1.20-3.40); #Monocytes 0.2 thou/uL (0.11-0.59); #Neutrophils 3.4 thou/uL (1.40-6.50); %Basophils 1.7 % (0.0-1.0); %Eosinophils 4.5 % (0.0-10.0); %Lymphocytes 31.6 % (21.0-51.0); %Neutrophils 58.2 % (42.0-75.0); Hemoglobin 12.6 g/dL (12.0-16.0); Mean Corpuscular HGB CONC 32.7 g/dL (32.0-36.0); Mean Corpuscular Hemoglobin 34.8 pg (27.0-31.0); Mean Corpuscular Volume 106.4 fl (78.0-98.0); Platelet Count 218 10x3/uL (130-400); RBC Distribution Width 12.2 % (11.5-14.5); Red Blood Cell (RBC) Count 3.63 mill/uL (4.20-5.40); White Blood Cell (WBC) Count 5.9 10x3/uL (4.8-10.8)
== END 2022-10-27 13:28 | disposition home or self-care (01) ==
LOC: MADULT 13:27
PROVIDERS: ATTEND Family Medicine
DX: E03.9 Hypothyroidism, unspecified (principal); I10 Essential (primary) hypertension; I51.81 Takotsubo syndrome; Z86.711 Personal history of pulmonary embolism
CPT/HCPCS: 36415; 76536; 80053; 80061; 84443; 85025

== ENCOUNTER 2024-03-29 15:57 | Inpatient (IN) | payer OTHER ==
[2024-03-29 17:47] VITALS: BMI 32.8
[2024-03-29] MEDS ORDERED: Apixaban 5 MG TAB PO SCH (21:00)
[2024-03-29] MEDS: Gabapentin 100 MG CAP PO SCH (21:14)
[2024-03-29] MEDS: Allopurinol 100 MG TAB PO SCH (21:15)
[2024-03-29] MEDS: Apixaban 2.5 MG TAB PO SCH (21:15)
[2024-03-29] MEDS: rOPINIRole HCl 0.25 MG TAB PO SCH (21:16)
[2024-03-29] MEDS: Melatonin 3 MG TAB PO SCH (21:16)
[2024-03-29] MEDS: traMADol HCl 50 MG TAB PO PRN (21:20)
[2024-03-30] MEDS: Levothyroxine Sodium 50 MCG TAB PO SCH (06:08)
[2024-03-30] MEDS: traMADol HCl 50 MG TAB PO PRN (06:09)
[2024-03-30 06:19] LABS: Anion Gap 14 mmol/L (10-20); BUN (Urea Nitrogen) 14 mg/dL (9.8-20.1); Calc. Creatinine Clearance 91 mL/min (70-130); Calcium 7.9 mg/dL (7.8-10.44); Carbon Dioxide 24 mmol/L (23-31); Chloride 100 mmol/L (98-107); Estimated GFR 84; Glucose 98 mg/dL (83-110); Potassium 3.6 mmol/L (3.5-5.1); Sodium 134 mmol/L (136-145)
[2024-03-30] MEDS ORDERED: Atorvastatin Calcium 40 MG TAB PO SCH (09:00)
[2024-03-30] MEDS: Oxybutynin 5 MG TAB PO SCH (09:03)
[2024-03-30] MEDS: Escitalopram Oxalate 10 mg Tablet PO SCH (09:03)
[2024-03-30] MEDS: Calcium Carbonate 600 MG + Vit D TAB PO SCH (09:04)
[2024-03-30] MEDS: Atorvastatin Calcium 40 MG TAB PO SCH (21:07)
[2024-03-30] MEDS: Melatonin 3 MG TAB PO PRN (21:09)
[2024-03-31] MEDS: Melatonin 3 MG TAB PO PRN (23:18)
[2024-04-01 07:18] LABS: Anion Gap 14 mmol/L (10-20); BUN (Urea Nitrogen) 9 mg/dL (9.8-20.1); Calc. Creatinine Clearance 101 mL/min (70-130); Calcium 8.4 mg/dL (7.8-10.44); Carbon Dioxide 25 mmol/L (23-31); Chloride 101 mmol/L (98-107); Estimated GFR 89; Glucose 95 mg/dL (83-110); Potassium 3.3 mmol/L (3.5-5.1); Sodium 137 mmol/L (136-145)
[2024-04-01 07:32] LABS: Hematocrit 28.1 % (36.0-47.0); Hemoglobin 8.7 g/dL (12.0-16.0); Mean Corpuscular HGB CONC 30.9 g/dL (32.0-36.0); Mean Corpuscular Hemoglobin 32.6 pg (27.0-31.0); Mean Corpuscular Volume 105.3 fl (78.0-98.0); Mean Platelet Volume 6.8 fL (7.4-10.4); Platelet Count 236 10x3/uL (130-400); RBC Distribution Width 13.2 % (11.5-14.5); Red Blood Cell (RBC) Count 2.67 mill/uL (4.20-5.40); White Blood Cell (WBC) Count 5.6 10x3/uL (4.8-10.8)
[2024-04-01] MEDS: Ferrous Gluconate 324 MG TAB PO SCH (13:55)
[2024-04-01] MEDS: Potassium Bicarbonate/Cit Ac 20 MEQ TAB PO SCH (13:55)
[2024-04-02 05:49] LABS: Anion Gap 14 mmol/L (10-20); BUN (Urea Nitrogen) 8 mg/dL (9.8-20.1); Calc. Creatinine Clearance 98 mL/min (70-130); Calcium 8.1 mg/dL (7.8-10.44); Carbon Dioxide 25 mmol/L (23-31); Chloride 102 mmol/L (98-107); Estimated GFR 89; Glucose 94 mg/dL (83-110); Potassium 3.2 mmol/L (3.5-5.1); Sodium 138 mmol/L (136-145)
[2024-04-02] MEDS: Ferrous Gluconate 324 MG TAB PO SCH (08:10)
[2024-04-02] MEDS: Potassium Bicarbonate/Cit Ac 20 MEQ TAB PO SCH (11:29)
[2024-04-02] MEDS ORDERED: Potassium Chloride 20 MEQ TAB PO ONE (13:30)
[2024-04-02] MEDS: Calcium Carbonate 600 MG + Vit D TAB PO SCH (20:14)
[2024-04-03] MEDS: Potassium Bicarbonate/Cit Ac 20 MEQ TAB PO SCH (09:24)
[2024-04-04] MEDS: Cyanocobalamin 1000 MCG/ML VIAL IM SCH (09:04)
[2024-04-04 10:31] LABS: Anion Gap 18 mmol/L (10-20); BUN (Urea Nitrogen) 11 mg/dL (9.8-20.1); Calc. Creatinine Clearance 93 mL/min (70-130); Calcium 8.7 mg/dL (7.8-10.44); Carbon Dioxide 21 mmol/L (23-31); Chloride 104 mmol/L (98-107); Estimated GFR 85; Glucose 81 mg/dL (83-110); Potassium 3.6 mmol/L (3.5-5.1); Sodium 139 mmol/L (136-145)
[2024-04-04] MEDS: Senokot S 8.6-50 MG TAB PO PRN (22:33)
[2024-04-08] MEDS ORDERED: Ibuprofen 100 MG/5 ML UDCUP PO PRN (15:26)
[2024-04-08] MEDS: Ibuprofen 200 MG TAB PO PRN (16:24)
[2024-04-08] MEDS: traMADol HCl 50 MG TAB PO PRN (21:06)
[2024-04-10 08:33] LABS: Hematocrit 29.3 % (36.0-47.0); Hemoglobin 8.7 g/dL (12.0-16.0); Mean Corpuscular HGB CONC 29.6 g/dL (32.0-36.0); Mean Corpuscular Hemoglobin 31.8 pg (27.0-31.0); Mean Corpuscular Volume 107.4 fl (78.0-98.0); Mean Platelet Volume 5.5 fL (7.4-10.4); Platelet Count 410 10x3/uL (130-400); RBC Distribution Width 14.5 % (11.5-14.5); Red Blood Cell (RBC) Count 2.73 mill/uL (4.20-5.40); White Blood Cell (WBC) Count 8.6 10x3/uL (4.8-10.8)
[2024-04-10 08:43] LABS: Anion Gap 12 mmol/L (10-20); BUN (Urea Nitrogen) 12 mg/dL (9.8-20.1); Calc. Creatinine Clearance 103 mL/min (70-130); Calcium 8.5 mg/dL (7.8-10.44); Carbon Dioxide 23 mmol/L (23-31); Chloride 108 mmol/L (98-107); Estimated GFR 89; Glucose 91 mg/dL (83-110); Sodium 139 mmol/L (136-145)
[2024-04-11] MEDS: Potassium Chloride 10 MEQ TAB PO SCH (08:37)
[2024-04-11 20:32] VITALS: BMI 33.5
[2024-04-12 09:09] VITALS: BP 109/71; TEMP 98.1
[2024-04-28] MEDS ORDERED: Cyanocobalamin 1000 MCG/ML VIAL IM SCH (09:00)
== END 2024-04-12 11:55 | disposition home or self-care (01) | DRG 560 ==
LOC: MADMS 17:09
PROVIDERS: ADMIT Family Medicine; ATTEND Emergency Medicine
DX: Z47.1 Aftercare following joint replacement surgery (principal); D62 Acute posthemorrhagic anemia; I50.22 Chronic systolic (congestive) heart failure; E87.1 Hypo-osmolality and hyponatremia; R53.81 Other malaise; E78.5 Hyperlipidemia, unspecified; E87.6 Hypokalemia; I25.10 Atherosclerotic heart disease of native coronary artery without angina pectoris; M16.11 Unilateral primary osteoarthritis, right hip; M17.0 Bilateral primary osteoarthritis of knee; E03.9 Hypothyroidism, unspecified; I11.0 Hypertensive heart disease with heart failure; E66.9 Obesity, unspecified; Z96.641 Presence of right artificial hip joint; Z98.890 Other specified postprocedural states; Z88.8 Allergy status to other drugs, medicaments and biological substances; Z79.890 Hormone replacement therapy; Z79.899 Other long term (current) drug therapy; Z90.49 Acquired absence of other specified parts of digestive tract; Z86.711 Personal history of pulmonary embolism; Z79.01 Long term (current) use of anticoagulants; Z68.33 Body mass index [BMI] 33.0-33.9, adult
CPT/HCPCS: 36415; 80048; 85027; J3420

== ENCOUNTER 2025-09-09 14:53 | Outpatient (CLI) | payer OTHER ==
[2025-09-09 15:46] LABS: ALT (SGPT) 19 U/L (Less than 34); AST (SGOT) 24 U/L (11-34); Albumin 3.6 g/dL (3.1-4.5); Alkaline Phosphatase 182 U/L (40-110); Anion Gap 15 mmol/L (10-20); BUN (Urea Nitrogen) 13 mg/dL (9.8-20.1); Bilirubin, Total 1.3 mg/dL (0.3-1.2); Calc. Creatinine Clearance 0 mL/min (70-130); Calcium 8.8 mg/dL (7.8-10.44); Carbon Dioxide 23 mmol/L (23-31); Cardiac Risk 2.4 (Less than 4.5); Chloride 108 mmol/L (98-107); Cholesterol 134 mg/dl (< 200 Desired); Globulin 2.9 g/dL (2.4-3.5); Glucose 106 mg/dL (83-110); HDL Cholesterol 56 mg/dL (>60 Neg Risk); LDL Cholesterol, Calculated 62 mg/dL; Potassium 4.1 mmol/L (3.5-5.1); Sodium 142 mmol/L (136-145); Triglycerides 80 mg/dL (Less than 150); Uric Acid 2.9 mg/dL (2.5-6.2)
[2025-09-09 23:25] LABS: Free T4 (Free Thyroxine) 1.13 ng/dL (0.70-1.48); Vitamin B12 Less than 148 pg/mL (211-911)
== END 2025-09-09 14:54 | disposition home or self-care (01) ==
LOC: MADLAB 14:53
PROVIDERS: ATTEND Family Medicine
DX: E03.9 Hypothyroidism, unspecified (principal); E53.8 Deficiency of other specified B group vitamins
CPT/HCPCS: 80053; 80061; 82607; 82746; 84439; 84443; 84481; 84550